=== PATIENT | male | born 1970 | race Caucasian/White ===

== ENCOUNTER 2021-02-27 15:48 | Inpatient (IN) | payer BC ==
[2021-02-27] MEDS ORDERED: NITROGLYCERIN OINT 1 INCH/GM PACKET TOPICAL STA (16:27)
[2021-02-27] MEDS ORDERED: ASPIRIN 81 MG PO STA (16:27)
--- NOTE | 2021-02-27 16:29 | ED ---
General Adult HPI - General Chief complaint: Chest Pain Stated complaint: chest pain-sent by PCP Time Seen by Provider: 02/27/21 16:14 Source: patient, RN notes reviewed Mode of arrival: ambulatory Limitations: no limitations - History of Present Illness Initial comments: Patient is a pleasant 51-year-old male presenting to the emergency department complaints of chest discomfort. Onset of symptoms was several days ago. Symptoms have been intermittent, lasting anywhere from 1-20 minutes. Discomfort feels a pressure with radiation up to the neck. There is occasional mild associated dyspnea. Patient was sweaty with symptoms earlier this morning. No nausea. No history of similar symptoms previously. No leg pain or leg swelling. - Related Data Home Medications Medication Instructions Recorded Confirmed Aspirin EC [Ecotrin Low Dose] 81 mg PO HS 02/27/21 02/27/21 Allergies Allergy/AdvReac Type Severity Reaction Status Date / Time No Known Allergies Allergy Verified 02/27/21 17:09 Review of Systems ROS Statement: Those systems with pertinent positive or pertinent negative responses have been documented in the HPI. ROS Other: All systems not noted in ROS Statement are negative. Constitutional: Denies: fever Eyes: Denies: eye pain ENT: Denies: ear pain Respiratory: Reports: as per HPI Cardiovascular: Reports: as per HPI, chest pain Endocrine: Denies: fatigue Gastrointestinal: Denies: abdominal pain, nausea Genitourinary: Denies: dysuria Musculoskeletal: Denies: back pain Skin: Denies: as per HPI Neurological: Denies: weakness Past Medical History Past Medical History: Hypertension History of Any Multi-Drug Resistant Organisms: None Reported Past Surgical History: Hernia Repair Past Psychological History: No Psychological Hx Reported Smoking Status: Current some day smoker Past Alcohol Use History: None Reported Past Drug Use History: Marijuana General Exam Limitations: no limitations General appearance: alert, in no apparent distress Head exam: Present: atraumatic Eye exam: Present: normal appearance Neck exam: Present: normal inspection Respiratory exam: Present: normal lung sounds bilaterally. Absent: chest wall tenderness Cardiovascular Exam: Present: regular rate, normal rhythm Expanded Peripheral pulses: 2+: Radial (R), Radial (L), Posterior Tibialis (R), Posterior Tibialis (L) GI/Abdominal exam: Present: soft. Absent: tenderness Extremities exam: Present: normal inspection. 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 NE 160. QRS 90. QT 376. QTc 394. Normal axis. Normal QRS. No acute ST change. Medical Decision Making - Medical Decision Making Patient reevaluated and resting comfortably in bed. Patient and family updated on results and plan. Case was discussed in detail with Dr. Guthrie, covering Dr. Peres, who admits covering for Dr. Armijo. - Lab Data Result diagrams: 02/27/21 16:50 02/27/21 16:50 Lab Results 02/27/21 02/27/21 02/27/21 Range/Units 16:50 16:50 16:50 WBC 9.4 (3.8-10.6) k/uL RBC 5.27 (4.30-5.90) m/uL Hgb 15.9 (13.0-17.5) gm/dL Hct 48.0 (39.0-53.0) % MCV 91.1 (80.0-100.0) fL MCH 30.1 (25.0-35.0) pg MCHC 33.1 (31.0-37.0) g/dL RDW 14.3 (11.5-15.5) % Plt Count 272 (150-450) k/uL MPV 7.5 Neutrophils % 56 % Lymphocytes % 32 % Monocytes % 7 % Eosinophils % 2 % Basophils % 1 % Neutrophils # 5.3 (1.3-7.7) k/uL Lymphocytes # 3.0 (1.0-4.8) k/uL Monocytes # 0.7 (0-1.0) k/uL Eosinophils # 0.2 (0-0.7) k/uL Basophils # 0.1 (0-0.2) k/uL PT 10.2 (9.0-12.0) sec INR 0.9 (<1.2) APTT 26.4 (22.0-30.0) sec D-Dimer 0.27 (<0.60) mg/L FEU Sodium 138 (137-145) mmol/L Potassium 4.3 (3.5-5.1) mmol/L Chloride 109 H (98-107) mmol/L Carbon Dioxide 23 (22-30) mmol/L Anion Gap 6 mmol/L BUN 18 (9-20) mg/dL Creatinine 0.94 (0.66-1.25) mg/dL Est GFR (CKD-EPI)AfAm >90 (>60 ml/min/1.73 sqM) Est GFR (CKD-EPI)NonAf >90 (>60 ml/min/1.73 sqM) Glucose 102 H (74-99) mg/dL Calcium 10.0 (8.4-10.2) mg/dL Magnesium 2.0 (1.6-2.3) mg/dL Total Bilirubin 0.4 (0.2-1.3) mg/dL AST 25 (17-59) U/L ALT 13 (4-49) U/L Alkaline Phosphatase 65 (38-126) U/L Troponin I (0.000-0.034) ng/mL Total Protein 7.3 (6.3-8.2) g/dL Albumin 4.1 (3.5-5.0) g/dL 02/27/21 Range/Units 16:50 WBC (3.8-10.6) k/uL RBC (4.30-5.90) m/uL Hgb (13.0-17.5) gm/dL Hct (39.0-53.0) % MCV (80.0-100.0) fL MCH (25.0-35.0) pg MCHC (31.0-37.0) g/dL RDW (11.5-15.5) % Plt Count (150-450) k/uL MPV Neutrophils % % Lymphocytes % % Monocytes % % Eosinophils % % Basophils % % Neutrophils # (1.3-7.7) k/uL Lymphocytes # (1.0-4.8) k/uL Monocytes # (0-1.0) k/uL Eosinophils # (0-0.7) k/uL Basophils # (0-0.2) k/uL PT (9.0-12.0) sec INR (<1.2) APTT (22.0-30.0) sec D-Dimer (<0.60) mg/L FEU Sodium (137-145) mmol/L Potassium (3.5-5.1) mmol/L Chloride (98-107) mmol/L Carbon Dioxide (22-30) mmol/L Anion Gap mmol/L BUN (9-20) mg/dL Creatinine (0.66-1.25) mg/dL Est GFR (CKD-EPI)AfAm (>60 ml/min/1.73 sqM) Est GFR (CKD-EPI)NonAf (>60 ml/min/1.73 sqM) Glucose (74-99) mg/dL Calcium (8.4-10.2) mg/dL Magnesium (1.6-2.3) mg/dL Total Bilirubin (0.2-1.3) mg/dL AST (17-59) U/L ALT (4-49) U/L Alkaline Phosphatase (38-126) U/L Troponin I 0.159 H* (0.000-0.034) ng/mL Total Protein (6.3-8.2) g/dL Albumin (3.5-5.0) g/dL - Radiology Data Radiology results: image reviewed (This x-ray does show some mild increase in interstitial lung markings.) Critical Care Time Critical Care Time: Yes Total Critical Care Time: 32 Disposition Clinical Impression: NSTEMI (non-ST elevated myocardial infarction) Disposition: ADMITTED IP TO THIS [facility] Is patient prescribed a controlled substance at d/c from ED?: No Referrals: Ramakrishna Segundo MD [Primary Care Provider] - 1-2 days Decision Time: 18:02
[2021-02-27 17:03] LABS: Basophils # (A) 0.1 k/uL (0-0.2); Basophils % (A) 1 %; Eosinophils # (A) 0.2 k/uL (0-0.7); Eosinophils % (A) 2 %; HGB 15.9 gm/dL (13.0-17.5); Lymphocytes % (A) 32 %; MCH 30.1 pg (25.0-35.0); MCHC 33.1 g/dL (31.0-37.0); MCV 91.1 fL (80.0-100.0); Mean Platelet Volume 7.5; Monocytes # (A) 0.7 k/uL (0-1.0); Monocytes % (A) 7 %; Neutrophils # (A) 5.3 k/uL (1.3-7.7); Neutrophils % (A) 56 %; Platelet Count 272 k/uL (150-450); RBC 5.27 m/uL (4.30-5.90); RDW 14.3 % (11.5-15.5); WBC 9.4 k/uL (3.8-10.6)
[2021-02-27 17:20] LABS: ALT 13 U/L (4-49); AST 25 U/L (17-59); African American GFR (CKD) >90 (>60 ml/min/1.73 sqM); Albumin 4.1 g/dL (3.5-5.0); Alkaline Phosphatase 65 U/L (38-126); Anion Gap 6 mmol/L; Blood Urea Nitrogen 18 mg/dL (9-20); Carbon Dioxide 23 mmol/L (22-30); Chloride 109 mmol/L (98-107); Glucose 102 mg/dL (74-99); Non-African American GFR(CKD) >90 (>60 ml/min/1.73 sqM); Potassium 4.3 mmol/L (3.5-5.1); Sodium 138 mmol/L (137-145); Total Bilirubin 0.4 mg/dL (0.2-1.3); Total Protein 7.3 g/dL (6.3-8.2)
[2021-02-27 17:22] LABS: D-Dimer 0.27 mg/L FEU (<0.60); INR 0.9 (<1.2); Partial Thromboplastin Time 26.4 sec (22.0-30.0); Prothrombin Time 10.2 sec (9.0-12.0)
--- NOTE | 2021-02-27 17:50 | XR ---
EXAMINATION TYPE: XR chest 2V DATE OF EXAM: 02/27/2021 COMPARISON: 10/20/2016 HISTORY: Shoulder pain. Chest pain TECHNIQUE: FINDINGS: Heart is normal. There is some coarsening of the interstitial pulmonary markings. There are no hilar masses. There are chest leads. Costophrenic angles are clear. IMPRESSION: Mild increased interstitial markings. No pulmonary consolidation or heart failure. Normal heart. No significant change.
[2021-02-27] MEDS ORDERED: NITROGLYCERIN SL TABS 0.4 MG TAB SUBLINGUAL PRN (18:02)
[2021-02-27] MEDS ORDERED: HEPARIN SODIUM 1,000 UN/ML (10ML VL) IV ONE (18:02)
[2021-02-27] MEDS ORDERED: HEPARIN SOD,PORK IN 0.45% NACL 25,000 UNIT in 0.45% NACL 1 250ML.BAG IV SCH (18:15)
[2021-02-27] MEDS ORDERED: NICOTINE 21MG/24HR PATCH TRANSDERM STA (19:58)
--- NOTE | 2021-02-27 23:39 | P.HPIM ---
History of Present Illness H&P Date: 02/27/21 The patient is a 50-year-old male with a PMH of EtOH abuse, tobacco abuse (currently smoking 1 pack per day) who presented to the emergency room with complaints of chest discomfort. The patient notes that his pain initially started 2 days ago when he noticed an occasional substernal and epigastric pressure-like discomfort, lasting only for a few minutes. The pain gradually became more frequent, rated at 7 out of 10 at its maximal intensity, lasting a varying amount of time, occurring every half hour or so, radiating up to the neck, nonpleuritic, with no alleviating or exacerbating features. He reported associated dyspnea along with diaphoresis and occasional nausea. The patient denied prior history of RI or having undergone any cardiac testing. Patient subsequently went to see his primary care doctor today who advised him to go to the emergency room. At time of interview, the patient reports that his pain resolved after being started on the heparin drip. He denied additional com plaints. Denied fever, chills, cough, abdominal pain, diarrhea, headaches, dizziness, visual disturbances. Laboratory evaluation in the emergency room was remarkable for troponin 0.159. EKG reveals sinus rhythm with sinus arrhythmia at [address]/T-wave changes noted as reviewed by me. Chest x-ray revealed mildly increased interstitial markings with no acute intrathoracic abnormalities noted. Review of Systems Pertinent positives and negatives as discussed in HPI, a complete review of systems was performed and all other systems are negative. Past Medical History Past Medical History: Hypertension History of Any Multi-Drug Resistant Organisms: None Reported Past Surgical History: Hernia Repair Past Psychological History: No Psychological Hx Reported Smoking Status: Current some day smoker Past Alcohol Use History: None Reported Past Drug Use History: Marijuana Medications and Allergies Home Medications Medication Instructions Recorded Confirmed Type Aspirin EC [Ecotrin Low Dose] 81 mg PO HS 02/27/21 02/27/21 History Allergies Allergy/AdvReac Type Severity Reaction Status Date / Time No Known Allergies Allergy Verified 02/27/21 17:09 Physical Exam Vitals: Vital Signs Temp Pulse Pulse Resp BP Pulse Ox 02/27/21 18:22 63 20 140/88 96 02/27/21 18:18 70 20 161/108 96 02/27/21 17:11 57 L 20 152/86 97 02/27/21 16:45 52 L 02/27/21 15:58 98.1 F 67 18 147/84 98 Intake and Output 02/27/21 02/27/21 02/27/21 06:59 14:59 22:59 Other: Weight 100.698 kg General: non toxic, no distress, appears at stated age, obese Derm: no unusual rashes/lesions no unusual ecchymoses, warm, dry Head: atraumatic, normocephalic, symmetric Eyes: EOMI, no lid lag, anicteric sclera, pupils equal round reactive to light ENT: Nose and ears atraumatic, no thrush, no pharyngeal erythema Neck: No thyromegaly, no cervical lymphadenopathy, trachea midline, supple Mouth: no lip lesion, mucus membranes moist Cardiovascular: S1S2 reg, no murmur, positive posterior tibial pulse bilateral, no edema, capillary refill less than 2 seconds, no chest wall tenderness on palpation Lungs: CTA bilateral, no rhonchi, no rales , no accessory muscle use Abdominal: soft, nontender to palpation, no guarding, no appreciable organomegaly, normal bowel sounds Ext: no gross muscle atrophy, muscle strength 5 out of 5 in all 4 extremities grossly, no contractures, Neuro: CN II-XI grossly intact, light touch intact all 4 extremities, finger to nose within normal limits, Psych: Alert, oriented, appropriate affect Results CBC & Chem 7: 02/27/21 16:50 02/27/21 16:50 Labs: Abnormal Lab Results - Last 24 Hours (Table) 02/27/21 02/27/21 02/27/21 Range/Units 16:50 16:50 19:55 APTT 56.0 H (22.0-30.0) sec Chloride 109 H (98-107) mmol/L Glucose 102 H (74-99) mg/dL Troponin I 0.159 H* (0.000-0.034) ng/mL 02/27/21 Range/Units 19:55 APTT (22.0-30.0) sec Chloride (98-107) mmol/L Glucose (74-99) mg/dL Troponin I 0.166 H* (0.000-0.034) ng/mL Assessment and Plan Plan: Non-ST elevation RI -Continue with heparin infusion -Continue with aspirin -Initiate Lopressor and statin -Cardiac monitoring -Trend troponin -Cardiology consult -Nitro patch History of tobacco abuse -Patient strongly advised on importance of cessation DVT prophylaxis -Heparin infusion The patient is admitted with an anticipated greater than 2 midnight stay for evaluation of NSTEMI CODE STATUS: Full Code Discussed with: Patient Anticipated discharge date: in am Anticipated discharge place: Home A total of 35 minutes was spent on the care of this complex patient more than 50% of the time was spent in counseling and care coordination.
[2021-02-27] MEDS: ATORVASTATIN 80 MG TAB PO SCH (23:57)
[2021-02-27] MEDS: METOPROLOL TARTRATE 25 MG TAB PO SCH (23:57)
[2021-02-27] MEDS: NITROGLYCERIN OINT 1 INCH/GM PACKET TOPICAL SCH (23:57)
[2021-02-28] MEDS: NITROGLYCERIN OINT 1 INCH/GM PACKET TOPICAL SCH (05:49)
[2021-02-28 07:30] LABS: Mean Platelet Volume 7.2; Platelet Count 261 k/uL (150-450)
[2021-02-28 07:37] LABS: Cholesterol 204 mg/dL (<200); HDL Cholesterol 39 mg/dL (40-60); LDL Cholesterol,Calculated 138 mg/dL (0-99); Triglycerides 136 mg/dL (<150)
[2021-02-28] MEDS ORDERED: ALPRAZolam 0.25 MG TAB PO PRN (08:27)
[2021-02-28] MEDS ORDERED: ALPRAZolam 0.5 MG TAB PO PRN (08:27)
[2021-02-28] MEDS ORDERED: SODIUM CHLORIDE 0.9% 1,000 ML in EMPTY BAG 1 BAG IV ONE (08:27)
[2021-02-28] MEDS ORDERED: ASPIRIN 325 MG TAB PO SCH (09:00)
[2021-02-28] MEDS ORDERED: IV FLUID CONTINUATION 1,000 ML IV ONE (09:13)
--- NOTE | 2021-02-28 09:17 | P.CRDCN ---
History of Present Illness History of present illness: HISTORY OF PRESENTING ILLNESS This is a pleasant 51-year-old male past medical history significant for Hypertension, ETOH abuse, nicotine dependence (smokes 1 pack per day). He does not follow with a cardiolgoist. We have been asked to see in consultation for chest pain. Patient is seen and examined in the emergency department. States he started having chest pain 4-5 days ago, had chest pain for about 2-3 times per day. Yesterday progressively got worse. Increased to every 30 minutes yesterday. Lasting about -15minutes. Chest pain is intermittent, describes it as a dull pressure. Pain is exertional. Started in the right side of his chest, radiating across his anterior chest to jaw. Pain is 7/10. After presenting to hospital and receiving nitro, aspirin, and heparin drip his chest pain resolved. Leaning forward helped relieve his pain at home. No alleviating factors or aggravating factors. Associated symptoms include dyspnea and diaphoresis, occasional nausea. Denies history of diabetes, NM, stroke, hypertension. Strong family history of CAD. Both grandfathers with MIs, grandmother with an NM, Father had an NM in his 40s. Denies palpitations, lower extremity edema, fa tigue, weakness, lightheadedness, syncope. Denies symptoms of orthopnea or PND. Current home cardiac medications include aspirin 81mg daily. Used to take medications for his BP but stopped those medications due to side effects. He was at his PCP yesterday who told him to present to the ER. DIAGNOSTICS EKG reveals sinus rhythm, heart rate 66, no significant STT wave abnormalities. Prior EKG in 2016 sinus bradycardia, HR 59, no significant ST-T Wave abnormalities Chest xray mild increased interstitial markings. No pulmonary consolidation or heart failure Laboratory reviewed, CBC unremarkable, troponin 0.15, 0.16, 0.23, sodium 138, potassium 4.3, serum creatinine 0.94, viral PCR negative, d-dimer 0.27 REVIEW OF SYSTEMS At the time of my exam: CONSTITUTIONAL: Denies fever or chills. CARDIOVASCULAR: + chest pain, +shortness of breath,+ diaphoresis Denies orthopnea, PND or palpitations. RESPIRATORY: Denies cough. GASTROINTESTINAL: Denies abdominal pain, diarrhea, constipation, nausea or vomiting. MUSCULOSKELETAL: Denies myalgias. NEUROLOGIC: Denies numbness, tingling, headacbe or weakness. ENDOCRINE: Denies fatigue, weight change, polydipsia or polyurina. GENITOURINARY: Denies burning, hematuria or urgency with micturation. HEMATOLOGIC: Denies history of anemia or bleeding. PHYSICAL EXAMINATION Blood pressure 135/80 heart rate 60s afebrile and maintaining oxygen saturation 96% on room air CONSTITUTIONAL: No apparent distress. HEENT: Head is normocephalic. Pupils are equal, round. Sclerae anicteric. Mucous membranes of the mouth are moist. No JVD. No carotid bruit. CHEST EXAMINATION: Lungs are clear to auscultation. No chest wall tenderness is noted on palpation or with deep breathing. HEART EXAMINATION: Regular rate and rhythm. S1, S2 heard. No murmurs, gallops or rub. ABDOMEN: Soft, nontender. Positive bowel sounds. EXTREMITIES: 2+ peripheral pulses, no lower extremity edema and no calf tenderness. SKIN: intact NEUROLOGIC EXAMINATION: Patient is awake, alert and oriented x3. ASSESSMENT NSTEMI Hypertension history of etoh abuse chronic nicotine dependence PLAN Obtain 2D echocardiogram and doppler study to assess cardiac structure and function. Plan for cardiac catheterization and possible PCI with Dr Olmedo. I have discussed the risks, benefits and alternative therapies for the above- mentioned procedure and for both sedation/analgesia as well as necessary blood product administration, if indicated, as they pertain to this patient. The p atient has indicated understanding and acceptance of the risks and procedures discussed. Questions have been answered appropriately and he is agreeable to move forward with the above-stated procedure. Smoking cessation discussed and highly recommended. Further recommendations based on clinical course Nurse Practitioner note has been reviewed, I agree with a documented findings and plan of care. Patient was seen and examined. Past Medical History Past Medical History: Hypertension History of Any Multi-Drug Resistant Organisms: None Reported Past Surgical History: Hernia Repair Past Anesthesia/Blood Transfusion Reactions: No Reported Reaction Past Psychological History: No Psychological Hx Reported Smoking Status: Current some day smoker Past Alcohol Use History: None Reported Past Drug Use History: Marijuana Medications and Allergies Home Medications Medication Instructions Recorded Confirmed Type Aspirin EC [Ecotrin Low Dose] 81 mg PO HS 02/27/21 02/27/21 History Allergies Allergy/AdvReac Type Severity Reaction Status Date / Time No Known Allergies Allergy Verified 02/27/21 17:09 Physical Exam Vitals: Vital Signs Temp Pulse Pulse Resp BP BP Pulse Ox 02/28/21 04:00 97.6 F 58 L 17 135/80 96 02/28/21 00:00 97.9 F 60 18 129/89 95 02/27/21 18:22 63 20 140/88 96 02/27/21 18:18 70 20 161/108 96 02/27/21 17:11 57 L 20 152/86 97 02/27/21 16:45 52 L 02/27/21 15:58 98.1 F 67 18 147/84 98 Intake and Output 02/27/21 02/27/21 02/28/21 14:59 22:59 06:59 Intake Total 68.333 Balance 68.333 Intake: Intake, IV Titration 68.333 Amount Heparin Sod,Pork in 0.45% 68.333 NaCl 25,000 unit In 0.45 % NaCl 1 250ml.bag @ 9. 931 UNITS/KG/HR 10 mls/hr IV .Q24H [facility] Rx#: [id number] Other: Weight 100.698 kg Results 02/28/21 07:07 02/27/21 16:50 Cardiac Enzymes 02/27/21 02/27/21 02/27/21 Range/Units 16:50 16:50 19:55 AST 25 (17-59) U/L Troponin I 0.159 H* 0.166 H* (0.000-0.034) ng/mL 02/28/21 Range/Units 00:08 AST (17-59) U/L Troponin I 0.238 H* (0.000-0.034) ng/mL Coagulation 02/27/21 02/27/21 02/28/21 Range/Units 16:50 19:55 00:08 PT 10.2 (9.0-12.0) sec APTT 26.4 56.0 H 33.5 H (22.0-30.0) sec CBC 02/27/21 Range/Units 16:50 WBC 9.4 (3.8-10.6) k/uL RBC 5.27 (4.30-5.90) m/uL Hgb 15.9 (13.0-17.5) gm/dL Hct 48.0 (39.0-53.0) % Plt Count 272 (150-450) k/uL Comprehensive Metabolic Panel 02/27/21 Range/Units 16:50 Sodium 138 (137-145) mmol/L Potassium 4.3 (3.5-5.1) mmol/L Chloride 109 H (98-107) mmol/L Carbon Dioxide 23 (22-30) mmol/L BUN 18 (9-20) mg/dL Creatinine 0.94 (0.66-1.25) mg/dL Glucose 102 H (74-99) mg/dL Calcium 10.0 (8.4-10.2) mg/dL AST 25 (17-59) U/L ALT 13 (4-49) U/L Alkaline Phosphatase 65 (38-126) U/L Total Protein 7.3 (6.3-8.2) g/dL Albumin 4.1 (3.5-5.0) g/dL Current Medications Generic Name Dose Route Start Last Admin Trade Name Freq PRN Reason Stop Dose Admin Aspirin 325 mg 02/28/21 09:00 Aspirin 325 Mg Tab PO DAILY KATT Atorvastatin Calcium 80 mg 02/27/21 23:45 02/27/21 23:57 Atorvastatin 80 Mg Tab PO 80 mg HS KATT Administration Heparin Sodium/Sodium Chloride 250 mls @ 10 mls/hr 02/27/21 18:15 02/28/21 01:26 25,000 unit/ Sodium Chloride IV 12.91 units/kg/hr .Q24H KATT 13 mls/hr Titration Protocol 9.931 UNITS/KG/HR Metoprolol Tartrate 25 mg 02/27/21 23:45 02/27/21 23:57 Metoprolol Tartrate 25 Mg Tab PO 25 mg BID KATT Administration Nitroglycerin 0.4 mg 02/27/21 18:02 Nitroglycerin Sl Tabs 0.4 Mg Tab SUBLINGUAL Q5M PRN Chest Pain Nitroglycerin 1 inch 02/28/21 00:00 02/28/21 05:49 Nitroglycerin Oint 1 Inch/Gm Packet TOPICAL Not Given Q6HR KATT Sodium Chloride 10 ml 02/27/21 21:00 02/27/21 23:45 Sodium Chloride 0.9% Flush 10 Ml Syringe IV Not Given BID KATT Intake and Output 02/27/21 02/27/21 02/28/21 14:59 22:59 06:59 Intake Total 68.333 Balance 68.333 Intake: Intake, IV Titration 68.333 Amount Heparin Sod,Pork in 0.45% 68.333 NaCl 25,000 unit In 0.45 % NaCl 1 250ml.bag @ 9. 931 UNITS/KG/HR 10 mls/hr IV .Q24H [facility] Rx#: [id number] Other: Weight 100.698 kg Patient Weight 02/28/21 06:59 Weight 100.698 kg 02/27/21 16:50 02/27/21 16:50
[2021-02-28] MEDS: MIDAZOLAM 2 MG/2 ML VIAL IVP ONE ×2 (09:22→09:55)
[2021-02-28] MEDS ORDERED: LIDOCAINE 1% INJ 10MG/ML (20 ML MDV) SQ ONE (09:22)
[2021-02-28] MEDS: fentaNYL (PF) 50 MCG/ML 2 ML AMP IVP ONE ×2 (09:22→09:55)
[2021-02-28] MEDS ORDERED: VERAPAMIL SYRINGE (5 MG/10 ML) INTRAARTER ONE (09:24)
[2021-02-28] MEDS: HEPARIN SODIUM 1,000 UN/ML (10ML VL) IV ONE ×2 (09:34→10:15)
[2021-02-28] MEDS ORDERED: PRASUGREL 10 MG TAB PO ONE (09:47)
--- NOTE | 2021-02-28 10:05 | P.CARDCATH ---
Date of Procedure: 02/28/21 Preoperative Diagnosis: Non-STEMI Postoperative Diagnosis: Critical lesion involving the circumflex Procedure(s) Performed: Left heart catheterization without left ventriculography Description of Procedure: HISTORY: This is a 50-year-old gentleman who was admitted to the hospital with chest pain and positive troponins. His EKG and echocardiogram from normal. Because of typical symptoms, patient is advised to have a cardiac c atheterization. CONSENT:I have discussed the risks, benefits and alternative therapies for the above-mentioned procedure and for both sedation/analgesia as well as necessary blood product administration, if indicated, as they pertain to this patient. The patient has indicated understanding and acceptance of the risks and procedures discussed. PROCEDURE: Patient was brought to the lab in a fasting state. Patient was given some IV sedation. The right wrist is infiltrated with lidocaine and right radial artery was entered using Seldinger technique. A 6-[place] catheter was left in place and selective coronary arteriography was performed. Patient tolerated the procedure well. Patient is found to have critical lesion in the circumflex and went on to have stent placement by Dr. Young.. No immediate complications were noted . Conscious Sedation: Versed 1mg Fentanyl 50 g Duration 21minutes HEMODYNAMICS: Aortic pressure is about 130/70. Left ventricular end-diastolic pressure is 15. No gradient across the aortic valve SELECTIVE CORONARY ARTERIOGRAPHY: LEFT MAIN: Normal length and free of occlusive disease THE LEFT ANTERIOR DESCENDING CORONARY ARTERY: . Moderate caliber vessel giving rise to good-sized diagonal. The LAD and branches are free of occlusive disease THE LEFT CIRCUMFLEX AND IS CORONARY ARTERY: . Moderate caliber vessel with 95% stenosis in the proximal portion THE RIGHT CORONARY ARTERY: Dominant vessel with mild diffuse plaque in the case area without any critical lesions LEFT VENTRICULOGRAPHY: Not performed FINAL IMPRESSION: . Critical lesion involving the circumflex PLAN: And placement of the circumflex PROGNOSIS: Fair
[2021-02-28] MEDS ORDERED: IOPAMIDOL-370 125ML BTL INJ ONE ×2 (10:11→10:36)
[2021-02-28] MEDS: NITROGLYCERIN 1000MCG/10ML SYRINGE INTRACORON ONE ×2 (10:28→10:31)
[2021-02-28] MEDS ORDERED: NICOTINE 21MG/24HR PATCH TRANSDERM STA (10:59)
[2021-02-28] MEDS ORDERED: ATROPINE SULFATE 0.1 MG/ML 10ML SYRINGE IV PRN (11:01)
[2021-02-28] MEDS ORDERED: RX INFO: IV CONTRAST WAS GIVEN 1 EACH MISC MISCELLANE PRN (11:01)
[2021-02-28] MEDS ORDERED: ZOLPIDEM 5 MG TAB PO PRN (11:01)
[2021-02-28] MEDS ORDERED: MAG HYDROX/AL HYDROX/SIMETH 30 ML CUP PO PRN (11:01)
--- NOTE | 2021-02-28 12:19 | ECHOF ---
Referral Reason:chest pain, elevated troponin MEASUREMENTS -------- HEIGHT: 182.9 cm WEIGHT: 100.7 kg BP: RVIDd: 3.0 cm (< 3.3) IVSd: 1.1 cm (0.6 - 1.1) LVIDd: 5.2 cm (3.9 - 5.3) LVPWd: 1.3 cm (0.6 - 1.1) IVSs: 1.5 cm LVIDs: 4.1 cm LVPWs: 1.2 cm LA Diam: 4.9 cm (2.7 - 3.8) LAESV Index (A-L): 27.02 ml/m Ao Diam: 3.7 cm (2.0 - 3.7) AV Cusp: 2.2 cm (1.5 - 2.6) MV EXCURSION: 21.518 mm (> 18.000) MV EF SLOPE: 109 mm/s (70 - 150) EPSS: 0.5 cm MV E Jhony: 0.67 m/s MV DecT: 183 ms MV A Jhony: 0.75 m/s MV E/A Ratio: 0.89 RAP: 5.00 mmHg RVSP: 19.39 mmHg FINDINGS -------- Sinus rhythm. This was a technically adequate study. The left ventricular size is normal. There is mild concentric left ventricular hypertrophy. Overa ll left ventricular systolic function is normal with, an EF between 55 - 60 %. The right ventricle is normal in size. Normal LA size by volume 22+/-6 ml/m2. The right atrial size is normal. There is mild aortic valve sclerosis. The mitral valve is normal. Mild mitral regurgitation is present. The tricuspid valve appears structurally normal. Trace tricuspid regurgitation present. Right ed tricular systolic pressure is normal at < 35 mmHg. Trace/mild (physiologic) pulmonic regurgitation. The aortic root size is normal. There is no pericardial effusion. CONCLUSIONS -------- 1. Overall left ventricular systolic function is normal with, an EF between 55 - 60 %. 2. Normal LA size by volume 22+/-6 ml/m2. 3. There is mild aortic valve sclerosis. 4. Mild mitral regurgitation is present. 5. Trace tricuspid regurgitation present. 6. Trace/mild (physiologic) pulmonic regurgitation. 7. There is no pericardial effusion. [employer] ASSEMBLER: Maggie Cohen RDCS
[2021-02-28] MEDS: METOPROLOL TARTRATE 25 MG TAB PO SCH ×2 (16:53→21:53)
[2021-02-28] MEDS: SODIUM CHLORIDE 0.9% 1,000 ML IV SCH (16:54)
[2021-02-28] MEDS: NICOTINE 21MG/24HR PATCH TRANSDERM SCH (17:24)
[2021-02-28] MEDS ORDERED: ASPIRIN 81 MG PO SCH (21:00)
--- NOTE | 2021-02-28 21:47 | P.PN ---
Progress Note - Text Progress Note Date: 02/28/21 Presenting complaint: Chest pain History of presenting complaint: The patient is a 50-year-old male with a PMH of EtOH abuse, tobacco abuse (currently smoking 1 pack per day) who presented to the emergency room with complaints of chest discomfort. The patient notes that his pain initially star moo 2 days ago when he noticed an occasional substernal and epigastric pressure- like discomfort, lasting only for a few minutes. The pain gradually became more frequent, rated at 7 out of 10 at its maximal intensity, lasting a varying amount of time, occurring every half hour or so, radiating up to the neck, nonpleuritic, with no alleviating or exacerbating features. He reported associated dyspnea along with diaphoresis and occasional nausea. The patient denied prior history of [place] or having undergone any cardiac testing. Patient subsequently went to see his primary care doctor today who advised him to go to the emergency room. At time of interview, the patient reports that his pain resolved after being started on the heparin drip. He denied additional complaints. Denied fever, chills, cough, abdominal pain, diarrhea, headaches, dizziness, visual disturbances. Laboratory evaluation in the emergency room was remarkable for troponin 0.159. EKG reveals sinus rhythm with sinus arrhythmia at [address]/T-wave changes noted as reviewed by me. Chest x-ray revealed mildly increased interstitial markings with no acute intrathoracic abnormalities noted. Today: Patient was taken down for a cardiac catheterization. Lesion in the circumflex was stented. Postprocedure no chest pain or shortness of breath. Review of systems: Was done for constitutional, cardiovascular, GI, pulmonary. relevant finding as above Active Medications Al Hydroxide/Mg Hydroxide (Mag Hydrox/Al Hydrox/Simeth 30 Ml Cup) 30 ml PO Q4HR PRN PRN Reason: Heartburn Alprazolam (Alprazolam 0.25 Mg Tab) 0.25 mg PO Q6HR PRN PRN Reason: Mild Anxiety Alprazolam (Alprazolam 0.5 Mg Tab) 0.5 mg PO Q6HR PRN PRN Reason: Moderate Anxiety Aspirin (Aspirin 81 Mg) 81 mg PO HS KATT Atorvastatin Calcium (Atorvastatin 80 Mg Tab) 80 mg PO HS KATT Last Admin: 02/27/21 23:57 Dose: 80 mg Documented by: Atropine Sulfate (Atropine Sulfate 0.1 Mg/Ml 10ml Syringe) 0.5 mg IV ONCE PRN PRN Reason: Symptomatic Bradycardia Heparin Sodium (Porcine) 10, (000 unit/ Sodium Chloride) 1,001 mls @ 999 mls/hr IRRIGATION ONCE PRN PRN Reason: INTRA-OP Stop: 03/01/21 23:00 Heparin Sodium (Porcine) 2,500 (unit/ Sodium Chloride) 250.5 mls @ 250 mls/hr IRRIGATION ONCE PRN PRN Reason: INTRA-OP Stop: 03/01/21 23:00 Sodium Chloride (Saline 0.9%) 1,000 mls @ 80 mls/hr IV .[id number] [facility] Last Admin: 02/28/21 16:54 Dose: Not Given Documented by: Metoprolol Tartrate (Metoprolol Tartrate 25 Mg Tab) [address] [facility] Last Admin: 02/28/21 16:53 Dose: Not Given Documented by: Miscellaneous Information (Rx Info: Iv Contrast Was Given 1 Each Misc) 1 each MISCELLANE DAILY PRN PRN Reason: Per Protocol Stop: 03/02/21 11:01 Nicotine (Nicotine 21mg/24hr Patch) [address] [facility] Last Admin: 02/28/21 17:24 Dose: 1 patch Documented by: Nitroglycerin (Nitroglycerin Sl Tabs 0.4 Mg Tab) 0.4 mg SUBLINGUAL Q5M PRN PRN Reason: Chest Pain Prasugrel (Prasugrel 10 Mg Tab) [address] [facility] Sodium Chloride (Sodium Chloride 0.9% Flush 10 Ml Syringe) [address] [facility] Last Admin: 02/28/21 16:53 Dose: Not Given Documented by: Zolpidem Tartrate (Zolpidem 5 Mg Tab) 5 mg PO HS PRN PRN Reason: Insomnia On examination: VITAL SIGNS: Afebrile, 58, 16, 150/94, 95% on room air GENERAL APPEARANCE: BMI 31.9, sitting up in bed, comfortable HEENT: Normal external appearance of nose and ear. Oral cavity normal EYES: Pupils equal. Conjunctiva normal. NECK: JVD not raised. Mass not palpable. RESPIRATORY: Respiratory effort normal. Lungs decreased breath sounds CARDIOVASCULAR: First and second sounds normal. No edema. ABDOMEN: Soft. Liver and spleen not palpable. No tenderness. No mass palpable. PSYCHIATRY: Alert and oriented x3. Mood and affect normal. INVESTIGATIONS, reviewed in the clinical context: WBC 9.4 hemoglobin 15.9 platelets 232 potassium 4.3 creatinine 0.94 Troponin I 0.159, 0.166, 0.238 LDL 138 Influenza type A, diabetes, RSV, COVID 19: Not detected EKG tracing personally reviewed by me-normal sinus rhythm Chest x-ray film: Nothing acute Assessment and plan: -Acute non-Q-wave [place] Initially placed on IV heparin. Aspirin. -Coronary artery disease Cardiac catheterization with stent to circumflex. Patient in aspirin, Lipitor, beta ibrahima -Essential hypertension On beta ibrahima. Add lisinopril hydrochlorothiazide 08/14.5 -Hyperlipidemia On Lipitor -Chronic nicotine dependence cigarette smoker Nicotine patch -Obesity BMI 31.9 Care was discussed with the patient and at the bedside. Questions answered.
[2021-02-28] MEDS: ATORVASTATIN 80 MG TAB PO SCH (21:53)
[2021-02-28] MEDS ORDERED: LISINOPRIL-HCTZ 10-12.5 MG 1 EACH TAB PO SCH (22:00)
--- NOTE | 2021-02-28 23:07 | P.PRCINT ---
Percutaneous Coronary Int. - Percutaneous Coronary Intervention Percutaneous Coronary Intervention: PROCEDURES PERFORMED: Left coronary angiography, PCI of proximal circumflex with a 3.0 x 33mm Xience RADHA and post dilated with a 3.5 NC balloon INDICATION: Non-STEMI HISTORY: Patient is a pleasant 51 year old male with history of hypertension, tobacco abuse who presented with chest pain and was found to have NSTEMI. Patient had a diagnostic heart cath which showed obstructive CAD of the circumflex with a 95% stenosis. PROCEDURE: After the risks, benefits and alternatives of the above mentioned procedure explained in detail with the patient, informed consent was obtained. Patient had already been prepped and draped in the usual fashion with a right radial sheath in place from diagnostic procedure. The left main was engaged with a CLS 3.5 catheter. A 0.014 BMW wire was advanced into the distal circumf delvin with the help of a 6Fr guideliner, and a microcatheter. Balloon angiography was performed with a 2.5 x 8mm balloon. Next a 3.0 x 33mm Xience RADHA was placed. The proximal portion of the stent was post dilated with a 3.5 NC balloon. Patient had distal embolization and spasm which improved with intracoronary nitroglycerin. The wire was removed and final angiograms were performed. Preintervention there was a 95% circumflex stenosis with HETAL 3 flow and post interventio there was 0% stenosis with HETAL 3 flow and no dissection. The right radial sheath was removed and a TR band was placed with hemostasis achieved. The patient tolerated the procedure well. Patient was transported back to the post catheterization holding area in stable condition. Conscious Sedation: Patient was monitored under the direct supervision of vision of myself for conscious sedation using Versed and fentanyl for a total duration of 57 minutes HEMODYNAMICS: Ao: 134/78 SELECTIVE CORONARY ARTERIOGRAPHY: LEFT MAIN: The left main is a large caliber vessel which trifurcates into the LAD, ramus and circumflex. There is no significant stenosis. LEFT ANTERIOR DESCENDING CORONARY ARTERY: LAD is a large caliber vessel which wraps around to the apex. There are mild luminal irregularities. RAMUS INTERMEDIUS: The ramus is a moderate caliber vessel and has mild luminal irregularities. LEFT CIRCUMFLEX CORONARY ARTERY: Left circumflex is a large caliber vessel with a 95% proximal stenosis. RIGHT CORONARY ARTERY: The right coronary artery was not imaged, see diagnostic report. FINAL IMPRESSION: 1. CAD s/p successful PCI of proximal to mid circumflex with 3.0 x 33mm Xience RADHA, and post dilated with a 3.5 NC balloon. 2. NSTEMI PLAN: 1. Aggressive risk factor modification per most recent ACC/AHA guidelines. 2. Dual antiplatelets for 12 months.
[2021-03-01] MEDS: SODIUM CHLORIDE 0.9% 1,000 ML IV SCH (06:55)
[2021-03-01] MEDS ORDERED: HEPARIN SODIUM,PORCINE 10,000 UNIT in SODIUM CHLORIDE 0.9% 1,000 ML IRRIGATION PRN (07:00)
[2021-03-01] MEDS ORDERED: HEPARIN SODIUM,PORCINE 2,500 UNIT in SODIUM CHLORIDE 0.9% 250 ML IRRIGATION PRN (07:00)
[2021-03-01 08:15] VITALS: RESP 16
[2021-03-01] MEDS: METOPROLOL TARTRATE 25 MG TAB PO SCH (09:05)
[2021-03-01] MEDS: NICOTINE 21MG/24HR PATCH TRANSDERM SCH (09:05)
[2021-03-01 10:00] LABS: Basophils # (A) 0.1 k/uL (0-0.2); Basophils % (A) 1 %; Eosinophils # (A) 0.2 k/uL (0-0.7); Eosinophils % (A) 2 %; HCT 49.1 % (39.0-53.0); HGB 16.6 gm/dL (13.0-17.5); Lymphocytes # (A) 2.1 k/uL (1.0-4.8); Lymphocytes % (A) 21 %; MCH 30.2 pg (25.0-35.0); MCHC 33.8 g/dL (31.0-37.0); MCV 89.3 fL (80.0-100.0); Mean Platelet Volume 7.4; Monocytes # (A) 0.7 k/uL (0-1.0); Monocytes % (A) 7 %; Neutrophils # (A) 6.8 k/uL (1.3-7.7); Neutrophils % (A) 68 %; Platelet Count 283 k/uL (150-450); RDW 13.5 % (11.5-15.5)
[2021-03-01 10:32] LABS: African American GFR (CKD) >90 (>60 ml/min/1.73 sqM); Anion Gap 6 mmol/L; Blood Urea Nitrogen 14 mg/dL (9-20); Calcium 9.8 mg/dL (8.4-10.2); Carbon Dioxide 22 mmol/L (22-30); Chloride 110 mmol/L (98-107); Glucose 98 mg/dL (74-99); Non-African American GFR(CKD) >90 (>60 ml/min/1.73 sqM); Potassium 4.7 mmol/L (3.5-5.1); Sodium 138 mmol/L (137-145)
[2021-03-01 11:23] VITALS: BMI 31.8
--- NOTE | 2021-03-01 12:14 | P.PN ---
Subjective HISTORY OF PRESENTING ILLNESS This is a pleasant 51-year-old male past medical history significant for Hypertension, ETOH abuse, nicotine dependence (smokes 1 pack per day). He does not follow with a cardiolgoist. We have been asked to see in consultation for chest pain/NSTEMI. EKG reveals sinus rhythm, heart rate 66, no significant STT wave abnormalities. Prior EKG in 2016 sinus bradycardia, HR 59, no significant ST-T Wave abnormalities Chest xray mild increased interstitial markings. No pulmonary consolidation or heart failure Laboratory reviewed, CBC unremarkable, troponin 0.15, 0.16, 0.23, sodium 138, potassium 4.3, serum creatinine 0.94, viral PCR negative, d-dimer 0.27. 2D echocardiogram revealed- EF 55-60%, mild MR, trace TR. Patient underwent cardiac catheterization with PCI of proximal to mid circumflex 02/28/21 03/01/21: Patient seen and examined at bedside, no acute distress. Blood pressure 150/80, heart rate 60s , maintaining oxygen saturations 90% room air, afebrile A reviewed, CBC unremarkable, as renal function stable, within normal limits. Patient's triglycerides 136, cholesterol 204, LDL 138, HDL 39. PHYSICAL EXAMINATION Blood pressure heart rate afebrile and maintaining oxygen saturation 96% on room air CONSTITUTIONAL: No apparent distress. HEENT: Head is normocephalic. No JVD. No carotid bruit. CHEST EXAMINATION: Lungs are clear to auscultation. HEART EXAMINATION: Regular rate and rhythm. S1, S2 heard. No murmurs, gallops or rub. ABDOMEN: Soft, nontender. Positive bowel sounds. EXTREMITIES: 2+ peripheral pulses, no lower extremity edema and no calf tenderness. SKIN: R radial artery cath site, clean dry no hematoma 2+ pulses NEUROLOGIC EXAMINATION: Patient is awake, alert and oriented x3. ASSESSMENT NSTEMI status post PCI of proximal to mid circumflex 02/28/21 Hypertension history of etoh abuse chronic nicotine dependence dyslipidemia PLAN Will increase linsiopril-hctz 20-12.5mg Continue dual antiplatelet therapy - aspirin 81mg daily, Prasugrel 10mg daily Continue metoprolol 25mg BID and statin From cardiology perspective, patient is stable for discharge home. Patient to follow-up in the office Dr. Olmedo one week New medication discussed with the patient and sent to pharmacy Smoking cessation discussed and highly recommended. Nurse Practitioner note has been reviewed, I agree with a documented findings and plan of care. Patient was seen and examined. Objective - Vital Signs Vital signs: Vital Signs Temp 98.1 F 02/28/21 08:00 Pulse 58 L 02/28/21 15:55 Resp 16 02/28/21 15:55 BP 178/90 02/28/21 15:55 Pulse Ox 95 02/28/21 11:20 Intake & Output 02/28/21 02/28/21 03/01/21 06:59 18:59 06:59 Intake Total 68.333 570.367 0 Balance 68.333 570.367 0 Intake: IV 100 Intake, IV Titration 68.333 470.367 Amount Heparin Sod,Pork in 0.45% 68.333 85.367 NaCl 25,000 unit In 0.45 % NaCl 1 250ml.bag @ 9. 931 UNITS/KG/HR 10 mls/hr IV .Q24H KATT Rx#: [id number] Sodium Chloride 0.9% 1, 385 000 ml @ 80 mls/hr IV . [id number] KATT Rx#:[id number] Oral 0 Other: # Voids 1 - Labs CBC & Chem 7: 03/01/21 09:05 03/01/21 09:05 Labs: Abnormal Lab Results - Last 24 Hours (Table) 02/27/21 02/27/21 02/28/21 Range/Units 19:55 19:55 00:08 APTT 56.0 H (22.0-30.0) sec Troponin I 0.166 H* 0.238 H* (0.000-0.034) ng/mL Cholesterol (<200) mg/dL LDL Cholesterol, Calc (0-99) mg/dL HDL Cholesterol (40-60) mg/dL 02/28/21 02/28/21 Range/Units 00:08 07:07 APTT 33.5 H (22.0-30.0) sec Troponin I (0.000-0.034) ng/mL Cholesterol 204 H (<200) mg/dL LDL Cholesterol, Calc 138 H (0-99) mg/dL HDL Cholesterol 39 L (40-60) mg/dL
[2021-03-01 12:57] VITALS: BP 160/83; PULSE 54; TEMP 99.6
--- NOTE | 2021-03-01 22:59 | P.DS ---
Providers Date of admission: 02/27/21 18:02 Expected date of discharge: 03/01/21 Attending physician: Tam Peres Consults: 02/27/21 18:02 Consult Physician Urgent Consulting Provider: Mihir Olmedo Consult Reason/Comments: nstemi Do you want consulting provider notified?: Yes 02/28/21 11:01 Consult Physician Routine Consulting Provider: [facility] Consult Reason/Comments: Post Interventional patient Do you want consulting provider notified?: Already Contacted Primary care physician: Ramakrishna Segundo MD Hospital Course: Presenting complaint: Chest pain History of presenting complaint: The patient is a 50-year-old male with a PMH of EtOH abuse, tobacco abuse (currently smoking 1 pack per day) who presented to the emergency room with complaints of chest discomfort. The patient notes that his pain initially started 2 days ago when he noticed an occasional substernal and epigastric pressure-like discomfort, lasting only for a few minutes. The pain gradually became more frequent, rated at 7 out of 10 at its maximal intensity, lasting a varying amount of time, occurring every half hour or so, radiating up to the neck, nonpleuritic, with no alleviating or exacerbating features. He reported associated dyspnea along with diaphoresis and occasional nausea. The patient denied prior history of [place] or having undergone any cardiac testing. Patient subsequently went to see his primary care doctor today who advised him to go to the emergency room. At time of interview, the patient reports that his pain resolved after being started on the heparin drip. He denied additional complaints. Denied fever, chills, cough, abdominal pain, diarrhea, headaches, dizziness, visual disturbances. Laboratory evaluation in the emergency room was remarkable for troponin 0.159. EKG reveals sinus rhythm with sinus arrhythmia at [address]/T-wave changes noted as reviewed by me. Chest x-ray revealed mildly increased interstitial markings with no acute intrathoracic abnormalities noted. cardiac catheterization. Lesion in the circumflex was stented. Today: Doing well. Up and about. No cardiac symptoms. Good oral intake. Care was discussed with the patient. Okay by cardiology to be discharged. Consultation: [facility] On examination: VITAL SIGNS: 98.4, 55, 16, 143 with 85, 96% room air GENERAL APPEARANCE: BMI 31.9, sitting up in bed, comfortable HEENT: Normal external appearance of nose and ear. Oral cavity normal EYES: Pupils equal. Conjunctiva normal. NECK: JVD not raised. Mass not palpable. RESPIRATORY: Respiratory effort normal. Lungs decreased breath sounds CARDIOVASCULAR: First and second sounds normal. No edema. ABDOMEN: Soft. Liver and spleen not palpable. No tenderness. No mass palpable. PSYCHIATRY: Alert and oriented x3. Mood and affect normal. INVESTIGATIONS, reviewed in the clinical context: March 01: Potassium 4.7 creatinine 0.84 WBC 9.4 hemoglobin 15.9 platelets 232 potassium 4.3 creatinine 0.94 Troponin I 0.159, 0.166, 0.238 LDL 138 Influenza type A, diabetes, RSV, COVID 19: Not detected EKG tracing personally reviewed by me-normal sinus rhythm Chest x-ray film: Nothing acute Assessment and plan: -Acute non-Q-wave [place] Initially placed on IV heparin. Aspirin. -Coronary artery disease Cardiac catheterization with stent to circumflex. Patient in aspirin, Lipitor, beta ibrahima -Essential hypertension On beta ibrahima. lisinopril hydrochlorothiazide 20/12.5 -Hyperlipidemia On Lipitor -Chronic nicotine dependence cigarette smoker Nicotine patch -Obesity BMI 31.9 Weight loss measures and follow with PCP Disposition: Home Plan - Discharge Summary Discharge Rx Participant: No New Discharge Prescriptions: New Prasugrel [Effient] 10 mg PO DAILY 30 Days #30 tab Metoprolol Tartrate [Lopressor] 25 mg PO BID 30 Days #60 tab Atorvastatin [Lipitor] 80 mg PO HS 30 Days #30 tab Nitroglycerin Sl Tabs [Nitrostat] 0.4 mg SUBLINGUAL Q5M PRN 10 Days #10 tab PRN Reason: Chest Pain Lisinopril-Hctz 20-12.5 mg [Zestoretic 20-12.5] 1 each PO DAILY 30 Days #30 tab Nicotine 21Mg/24Hr Patch [Habitrol] 1 patch TRANSDERM DAILY 30 Days #30 patch Continue Aspirin EC [Ecotrin Low Dose] 81 mg PO HS Discharge Medication List Aspirin EC [Ecotrin Low Dose] 81 mg PO HS 02/27/21 [History] Atorvastatin [Lipitor] 80 mg PO HS 30 Days #30 tab 03/01/21 [Rx] Lisinopril-Hctz 20-12.5 mg [Zestoretic 20-12.5] 1 each PO DAILY 30 Days #30 tab 04/29/21 [Rx] Metoprolol Tartrate [Lopressor] 25 mg PO BID 30 Days #60 tab 03/01/21 [Rx] Nicotine 21Mg/24Hr Patch [Habitrol] 1 patch TRANSDERM DAILY 30 Days #30 patch 03/01/21 [Rx] Nitroglycerin Sl Tabs [Nitrostat] 0.4 mg SUBLINGUAL Q5M PRN 10 Days #10 tab 03/01/21 [Rx] Prasugrel [Effient] 10 mg PO DAILY 30 Days #30 tab 03/01/21 [Rx] Follow up Appointment(s)/Referral(s): Ramakrishna Segundo MD [Primary Care Provider] - 03/09/21 10:30 am Mihir Olmedo MD [STAFF PHYSICIAN] - 03/08/21 10:30 am ([facility] will call you with date/time of your recheck appt.) Patient Instructions/Handouts: Heart Attack (DC), After Radial Heart Catheterization (GEN) Discharge Disposition: HOME SELF-CARE
[2021-03-02] MEDS ORDERED: LISINOPRIL-HCTZ 20-25 MG 1 EACH TAB PO SCH (09:00)
[2021-03-02] MEDS ORDERED: PRASUGREL 10 MG TAB PO SCH (09:00)
[2021-03-02] MEDS ORDERED: LISINOPRIL-HCTZ 20-12.5 MG 1 EACH TAB PO SCH (09:00)
== END 2021-03-01 13:28 | disposition home or self-care (01) | DRG 247 ==
LOC: EC 15:48 → 3SCARD 18:02
PROVIDERS: ADMIT Hospitalist; ATTEND Hospitalist
PROC: B2111ZZ Fluoroscopy of Multiple Coronary Arteries using Low Osmolar Contrast (ICD-10-PCS; 2021-02-28)
PROC: 027034Z Dilation of Coronary Artery, One Artery with Drug-eluting Intraluminal Device, Percutaneous Approach (ICD-10-PCS; principal; 2021-02-28 10:00)
PROC: 4A023N7 Measurement of Cardiac Sampling and Pressure, Left Heart, Percutaneous Approach (ICD-10-PCS; 2021-02-28 10:00)
DX: I21.4 Non-ST elevation (NSTEMI) myocardial infarction (principal); I10 Essential (primary) hypertension; Z20.822 Contact with and (suspected) exposure to COVID-19; F10.10 Alcohol abuse, uncomplicated; F17.210 Nicotine dependence, cigarettes, uncomplicated; Z98.890 Other specified postprocedural states; Z79.82 Long term (current) use of aspirin; Z82.49 Family history of ischemic heart disease and other diseases of the circulatory system; I25.10 Atherosclerotic heart disease of native coronary artery without angina pectoris; E78.5 Hyperlipidemia, unspecified; Z68.31 Body mass index [BMI] 31.0-31.9, adult; E66.9 Obesity, unspecified
CPT/HCPCS: 36415; 71046; 80048; 80053; 80061; 83735; 84484; 85025; 85049; 85379; 85610; 85730; 87636; 93005; 93306; 93458; 99285

== ENCOUNTER 2021-09-07 14:53 | Inpatient (IN) | payer BC ==
[2021-09-07] MEDS ORDERED: SODIUM CHLORIDE 0.9% 500 ML 500 ML IV STA (15:25)
--- NOTE | 2021-09-07 15:29 | ED ---
General Adult HPI - General Chief complaint: Chest Pain Stated complaint: Chest pain Time Seen by Provider: 09/07/21 15:15 Source: patient, RN notes reviewed, old records reviewed Mode of arrival: ambulatory Limitations: no limitations - History of Present Illness Initial comments: Well-appearing 51-year-old male, alert and oriented 4, presents to the emergency room with complaints of chest pain with dizziness for one week. He states that the pain comes on with strenuous activity. 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 He states today the pain started when he was throwing his fifth pale of hay. He states that it took 20 minutes of rest before the pain resolved. He does have history of hypertension and a non-STEMI in February 2021. He had PCI done with 95% stenosis of the left circumflex with a stent placed. States that he was supposed to follow-up with cardiology in July but he missed that appointment due to working so many hours. He is a pack-a-day smoker. -: week(s) (1) Location: chest Radiation: non-radiation Severity scale (1-10): 0 Quality: sharp Consistency: now resolved Improves with: rest Worsens with: other (physical activity) Associated Symptoms: denies other symptoms Treatments Prior to Arrival: Aspirin - Related Data Home Medications Medication Instructions Recorded Confirmed Aspirin EC [Ecotrin Low Dose] 81 mg PO DAILY 02/27/21 09/07/21 Lisinopril-Hctz 20-12.5 mg 1 tab PO DAILY 09/07/21 09/07/21 [Zestoretic 20-12.5] Prasugrel [Effient] 10 mg PO HS 09/07/21 09/07/21 Previous Rx's Medication Instructions Recorded Atorvastatin [Lipitor] 80 mg PO HS 30 Days #30 tab 03/01/21 Metoprolol Tartrate [Lopressor] 25 mg PO BID 30 Days #60 tab 03/01/21 Allergies Allergy/AdvReac Type Severity Reaction Status Date / Time No Known Allergies Allergy Verified 09/07/21 16:08 Review of Systems ROS Statement: Those systems with pertinent positive or pertinent negative responses have been documented in the HPI. ROS Other: All systems not noted in ROS Statement are negative. Past Medical History Past Medical History: Hypertension History of Any Multi-Drug Resistant Organisms: None Reported Past Surgical History: Hernia Repair Past Anesthesia/Blood Transfusion Reactions: No Reported Reaction Past Psychological History: No Psychological Hx Reported Smoking Status: Current some day smoker Past Alcohol Use History: None Reported Past Drug Use History: Marijuana - Past Family History Father Family Medical History: Coronary Artery Disease (CAD) General Exam Limitations: no limitations General appearance: alert, in no apparent distress Head exam: Present: atraumatic, normocephalic, normal inspection Eye exam: Present: normal appearance, EOMI ENT exam: Present: normal exam, normal oropharynx, mucous membranes moist Neck exam: Present: normal inspection, full ROM. Absent: tenderness, meningismus Respiratory exam: Present: normal lung sounds bilaterally. Absent: respiratory distress, wheezes, rales, rhonchi, stridor, chest wall tenderness, accessory muscle use Cardiovascular Exam: Present: bradycardia, normal heart sounds GI/Abdominal exam: Present: soft, normal bowel sounds. Absent: distended, tenderness, guarding, rebound, rigid Back exam: Present: full ROM. Absent: tenderness, CVA tenderness (R), CVA tenderness (L) Neurological exam: Present: alert, oriented X3, normal gait Psychiatric exam: Present: normal affect, normal mood Skin exam: Present: warm, dry, intact, normal color. 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 Worsens with strenuous activity. Chest x-ray shows diffuse interstitial opacities. Patient denies any cough or shortness of breath. He has had no fevers. There is no evidence of leukocytosis. Troponin is positive at 0.543 patient will be admitted with a non-STEMI. EKG was reviewed with Dr. Gage. Patient took an aspirin and his prasugrel this morning. He was started on heparin and an inch of Nitropaste was applied. He denies pain at this time. - Lab Data Result diagrams: 09/07/21 15:59 09/07/21 15:59 Lab Results 09/07/21 09/07/21 09/07/21 Range/Units 15:59 15:59 15:59 WBC 9.2 (3.8-10.6) k/uL RBC 5.33 (4.30-5.90) m/uL Hgb 16.8 (13.0-17.5) gm/dL Hct 49.3 (39.0-53.0) % MCV 92.5 (80.0-100.0) fL MCH 31.5 (25.0-35.0) pg MCHC 34.1 (31.0-37.0) g/dL RDW 13.4 (11.5-15.5) % Plt Count 243 (150-450) k/uL MPV 7.9 Neutrophils % 57 % Lymphocytes % 30 % Monocytes % 7 % Eosinophils % 2 % Basophils % 1 % Neutrophils # 5.3 (1.3-7.7) k/uL Lymphocytes # 2.8 (1.0-4.8) k/uL Monocytes # 0.7 (0-1.0) k/uL Eosinophils # 0.2 (0-0.7) k/uL Basophils # 0.1 (0-0.2) k/uL PT 10.4 (9.0-12.0) sec INR 1.0 (<1.2) APTT 26.9 (22.0-30.0) sec Sodium (137-145) mmol/L Potassium (3.5-5.1) mmol/L Chloride (98-107) mmol/L Carbon Dioxide (22-30) mmol/L Anion Gap mmol/L BUN (9-20) mg/dL Creatinine (0.66-1.25) mg/dL Est GFR (CKD-EPI)AfAm (>60 ml/min/1.73 sqM) Est GFR (CKD-EPI)NonAf (>60 ml/min/1.73 sqM) Glucose (74-99) mg/dL Calcium (8.4-10.2) mg/dL Magnesium (1.6-2.3) mg/dL Total Bilirubin (0.2-1.3) mg/dL AST (17-59) U/L ALT (4-49) U/L Alkaline Phosphatase (38-126) U/L Troponin I (0.000-0.034) ng/mL Total Protein (6.3-8.2) g/dL Albumin (3.5-5.0) g/dL Urine Color Yellow Urine Appearance Clear (Clear) Urine pH 5.5 (5.0-8.0) Ur Specific [place] 1.007 (1.001-1.035) Urine Protein Negative (Negative) Urine Glucose (UA) Negative (Negative) Urine Ketones Negative (Negative) Urine Blood Negative (Negative) Urine Nitrite Negative (Negative) Urine Bilirubin Negative (Negative) Urine Urobilinogen <2.0 (<2.0) mg/dL Ur Leukocyte Esterase Negative (Negative) 09/07/21 09/07/21 Range/Units 15:59 15:59 WBC (3.8-10.6) k/uL RBC (4.30-5.90) m/uL Hgb (13.0-17.5) gm/dL Hct (39.0-53.0) % MCV (80.0-100.0) fL MCH (25.0-35.0) pg MCHC (31.0-37.0) g/dL RDW (11.5-15.5) % Plt Count (150-450) k/uL MPV Neutrophils % % Lymphocytes % % Monocytes % % Eosinophils % % Basophils % % Neutrophils # (1.3-7.7) k/uL Lymphocytes # (1.0-4.8) k/uL Monocytes # (0-1.0) k/uL Eosinophils # (0-0.7) k/uL Basophils # (0-0.2) k/uL PT (9.0-12.0) sec INR (<1.2) APTT (22.0-30.0) sec Sodium 136 L (137-145) mmol/L Potassium 4.8 (3.5-5.1) mmol/L Chloride 105 (98-107) mmol/L Carbon Dioxide 23 (22-30) mmol/L Anion Gap 8 mmol/L BUN 15 (9-20) mg/dL Creatinine 0.85 (0.66-1.25) mg/dL Est GFR (CKD-EPI)AfAm >90 (>60 ml/min/1.73 sqM) Est GFR (CKD-EPI)NonAf >90 (>60 ml/min/1.73 sqM) Glucose 109 H (74-99) mg/dL Calcium 10.0 (8.4-10.2) mg/dL Magnesium 2.1 (1.6-2.3) mg/dL Total Bilirubin 0.6 (0.2-1.3) mg/dL AST 31 (17-59) U/L ALT 16 (4-49) U/L Alkaline Phosphatase 52 (38-126) U/L Troponin I 0.543 H* (0.000-0.034) ng/mL Total Protein 7.5 (6.3-8.2) g/dL Albumin 4.1 (3.5-5.0) g/dL Urine Color Urine Appearance (Clear) Urine pH (5.0-8.0) Ur Specific [place] (1.001-1.035) Urine Protein (Negative) Urine Glucose (UA) (Negative) Urine Ketones (Negative) Urine Blood (Negative) Urine Nitrite (Negative) Urine Bilirubin (Negative) Urine Urobilinogen (<2.0) mg/dL Ur Leukocyte Esterase (Negative) Disposition Clinical Impression: Non-STEMI (non-ST elevated myocardial infarction), Bradycardia Disposition: ADMITTED IP TO THIS HOSP Decision Date: 09/07/21 Decision Time: 17:20
[2021-09-07 16:12] LABS: Basophils # (A) 0.1 k/uL (0-0.2); Basophils % (A) 1 %; Eosinophils # (A) 0.2 k/uL (0-0.7); Eosinophils % (A) 2 %; HCT 49.3 % (39.0-53.0); HGB 16.8 gm/dL (13.0-17.5); Lymphocytes # (A) 2.8 k/uL (1.0-4.8); Lymphocytes % (A) 30 %; MCH 31.5 pg (25.0-35.0); MCHC 34.1 g/dL (31.0-37.0); MCV 92.5 fL (80.0-100.0); Mean Platelet Volume 7.9; Monocytes # (A) 0.7 k/uL (0-1.0); Monocytes % (A) 7 %; Neutrophils # (A) 5.3 k/uL (1.3-7.7); Neutrophils % (A) 57 %; Platelet Count 243 k/uL (150-450); RBC 5.33 m/uL (4.30-5.90); RDW 13.4 % (11.5-15.5); WBC 9.2 k/uL (3.8-10.6)
[2021-09-07 16:14] LABS: Appearance,Urine Clear (Clear); Bilirubin,Urine Negative (Negative); Blood,Urine Negative (Negative); Color,Urine Yellow; Glucose,Urine (UA) Negative (Negative); Ketones,Urine Negative (Negative); Leukocyte Esterase,Urine Negative (Negative); Nitrite,Urine Negative (Negative); PH, Urine 5.5 (5.0-8.0); Protein,Urine Negative (Negative); Specific Gravity,Urine 1.007 (1.001-1.035); Urobilinogen,Urine <2.0 mg/dL (<2.0)
--- NOTE | 2021-09-07 16:26 | XR ---
EXAMINATION TYPE: XR chest 2V DATE OF EXAM: 09/07/2021 COMPARISON: 02/27/2021 HISTORY: 51-year-old male with chest pain TECHNIQUE: PA and lateral views FINDINGS: Heart normal size. Aorta within normal limits. Diffuse interstitial opacity appears slightly increase d from prior. No javon consolidation or pleural effusion. IMPRESSION: Diffuse interstitial opacity slightly increased from prior. Correlate for possible etiologies such as atypical/COVID pneumonia, pulmonary vascular congestion, interstitial pneumonitis.
[2021-09-07 16:28] LABS: ALT 16 U/L (4-49); AST 31 U/L (17-59); African American GFR (CKD) >90 (>60 ml/min/1.73 sqM); Albumin 4.1 g/dL (3.5-5.0); Alkaline Phosphatase 52 U/L (38-126); Anion Gap 8 mmol/L; Blood Urea Nitrogen 15 mg/dL (9-20); Carbon Dioxide 23 mmol/L (22-30); Chloride 105 mmol/L (98-107); Glucose 109 mg/dL (74-99); Magnesium 2.1 mg/dL (1.6-2.3); Non-African American GFR(CKD) >90 (>60 ml/min/1.73 sqM); Potassium 4.8 mmol/L (3.5-5.1); Sodium 136 mmol/L (137-145); Total Bilirubin 0.6 mg/dL (0.2-1.3); Total Protein 7.5 g/dL (6.3-8.2)
[2021-09-07 16:53] LABS: Partial Thromboplastin Time 26.9 sec (22.0-30.0); Prothrombin Time 10.4 sec (9.0-12.0)
[2021-09-07] MEDS ORDERED: NITROGLYCERIN OINT 1 INCH/GM PACKET TOPICAL STA (17:04)
[2021-09-07] MEDS ORDERED: HEPARIN SODIUM 1,000 UN/ML (10ML VL) IV ONE (17:06)
[2021-09-07] MEDS ORDERED: HEPARIN SODIUM 1,000 UN/ML (10ML VL) IV PRN (17:06)
[2021-09-07] MEDS: HEPARIN SOD,PORK IN 0.45% NACL 25,000 UNIT in 0.45% NACL 1 250ML.BAG IV SCH (17:48)
[2021-09-07] MEDS ORDERED: NALOXONE 0.4 MG/ML 1 ML VIAL IV PRN (18:14)
[2021-09-07] MEDS: SODIUM CHLORIDE 0.9% 1,000 ML IV SCH (19:18)
[2021-09-07] MEDS: ATORVASTATIN 80 MG TAB PO SCH (19:31)
[2021-09-07] MEDS: METOPROLOL TARTRATE 25 MG TAB PO SCH (19:31)
--- NOTE | 2021-09-07 21:37 | P.HPIM ---
History of Present Illness H&P Date: 09/07/21 The patient is a 48-year-old male with a PMH of active tobacco abuse (one pack per day), hypertension, hyperlipidemia coronary artery disease status post VT in 02/21 with subsequent stenting 1 who now presents to the emergency room with complaints of chest discomfort and shortness of breath. 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 He reports that over the past 1 month, he has had gradually worsening intermittent right chest discomfort. 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 He notes that over the past 1 week however, the pain has been occurring far more frequently, now multiple times a day, lasting for a few minutes at a time, alleviated with rest. The pain occasionally radiates up into his neck. He reports associated dyspnea but denied diaphoresis, nausea, vomiting, or dizziness. Reports that his symptoms are very similar to when he had his prior VT in February of this year. At time of evaluation, the patient reports that his pain has improved to a 1 out of 10. In the emergency room, an EKG revealed sinus bradycardia at 43 bpm with poor R-wave progression and T-wave inversions in leads 3 and V1. Troponin was 0.543. Review of systems: Pertinent positives and negatives as discussed in HPI, a complete review of systems was performed and all other systems are negative. Physical examination: General: non toxic, no distress, appears at stated age, obese Derm: no unusual rashes/lesions no unusual ecchymoses, warm, dry Head: atraumatic, normocephalic, symmetric Eyes: EOMI, no lid lag, anicteric sclera, pupils equal round reactive to light ENT: Nose and ears atraumatic, no thrush, no pharyngeal erythema Neck: No thyromegaly, no cervical lymphadenopathy, trachea midline, supple Mouth: no lip lesion, mucus membranes moist Cardiovascular: S1S2 reg, no murmur, positive posterior tibial pulse bilateral, no edema, capillary refill less than 2 seconds Lungs: CTA bilateral, no rhonchi, no rales , no accessory muscle use Abdominal: soft, nontender to palpation, no guarding, no appreciable organomegaly, normal bowel sounds Ext: no gross muscle atrophy, muscle strength 5 out of 5 in all 4 extremities grossly, no contractures, Neuro: CN II-XI grossly intact, light touch intact all 4 extremities, finger to nose within normal limits, Psych: Alert, oriented, appropriate affect Assessment/plan Non-ST elevation VT -Cardiology consult -Cardiac monitoring -Continue to trend troponin -Continue with heparin infusion -Patient with his aspirin dose this morning -Hold off on Lopressor in setting of bradycardia -Strongly advised on importance of tobacco use cessation Chronic conditions: Hypertension, hyperlipidemia -Continue with home meds -Hold off on Lopressor in setting of bradycardia DVT prophylaxis -Heparin infusion The patient is admitted with an anticipated greater than 2 midnight stay for evaluation of NSTEMI CODE STATUS: Full Code Discussed with: Patient Anticipated discharge date: 09/[address]: Home Past Medical History Past Medical History: Hypertension History of Any Multi-Drug Resistant Organisms: None Reported Past Surgical History: Hernia Repair Past Anesthesia/Blood Transfusion Reactions: No Reported Reaction Past Psychological History: No Psychological Hx Reported Smoking Status: Current some day smoker Past Alcohol Use History: None Reported Past Drug Use History: Marijuana - Past Family History Father Family Medical History: Coronary Artery Disease (CAD) Medications and Allergies Home Medications Medication Instructions Recorded Confirmed Type Aspirin EC [Ecotrin Low Dose] 81 mg PO DAILY 02/27/21 09/07/21 History Atorvastatin [Lipitor] 80 mg PO HS 30 Days #30 tab 03/01/21 09/07/21 Rx Metoprolol Tartrate [Lopressor] 25 mg PO BID 30 Days #60 tab 03/01/21 09/07/21 Rx Lisinopril-Hctz 20-12.5 mg 1 tab PO DAILY 09/07/21 09/07/21 History [Zestoretic 20-12.5] Prasugrel [Effient] 10 mg PO HS 09/07/21 09/07/21 History Allergies Allergy/AdvReac Type Severity Reaction Status Date / Time No Known Allergies Allergy Verified 09/07/21 16:08 Physical Exam Vitals: Vital Signs Temp Pulse Pulse Resp BP Pulse Ox 09/07/21 15:23 43 L 09/07/21 15:08 97.6 F 48 L 18 127/82 97 Intake and Output 09/07/21 09/07/21 09/07/21 06:59 14:59 22:59 Other: Weight 99.79 kg Results CBC & Chem 7: 09/07/21 15:59 09/07/21 15:59 Labs: Abnormal Lab Results - Last 24 Hours (Table) 09/07/21 09/07/21 09/07/21 Range/Units 15:59 15:59 19:10 Sodium 136 L (137-145) mmol/L Glucose 109 H (74-99) mg/dL Troponin I 0.543 H* 0.662 H* (0.000-0.034) ng/mL
[2021-09-07] MEDS ORDERED: NICOTINE 7MG/24HR PATCH TRANSDERM STA (22:43)
[2021-09-08 08:40] LABS: Basophils # (A) 0.1 k/uL (0-0.2); Basophils % (A) 1 %; Eosinophils # (A) 0.2 k/uL (0-0.7); Eosinophils % (A) 2 %; HCT 43.5 % (39.0-53.0); HGB 14.3 gm/dL (13.0-17.5); Lymphocytes # (A) 3.1 k/uL (1.0-4.8); Lymphocytes % (A) 33 %; MCH 30.8 pg (25.0-35.0); MCV 93.4 fL (80.0-100.0); Monocytes # (A) 0.6 k/uL (0-1.0); Monocytes % (A) 6 %; Neutrophils # (A) 5.2 k/uL (1.3-7.7); Neutrophils % (A) 55 %; Platelet Count 222 k/uL (150-450); RBC 4.66 m/uL (4.30-5.90); RDW 13.5 % (11.5-15.5); WBC 9.4 k/uL (3.8-10.6)
[2021-09-08 08:53] LABS: Prothrombin Time 10.6 sec (9.0-12.0)
[2021-09-08] MEDS: LISINOPRIL-HCTZ 20-12.5 MG 1 EACH TAB PO SCH (09:57)
[2021-09-08] MEDS: METOPROLOL TARTRATE 25 MG TAB PO SCH (09:58)
--- NOTE | 2021-09-08 16:04 | P.PN ---
Subjective Progress Note Date: 09/08/21 Principal diagnosis: chest pain Patient is a 51-year-old male with hypertension, dyslipidemia, coronary artery disease status post myocardial infarction 421 and ongoing tobacco abuse who presented to the hospital complaints of chest pain. In the ER he underwent extensive evaluation. His vital signs on arrival within normal limits. Initial troponin was mildly elevated. EKG showed marked bradycardia with no significant ST-T wave changes. He was given ASA, Hepain gtt, and metoprolol was held. He was admitted for further monitoring. Caridology was consulted. CXR showed instertial opacifities but COVID testing was negative. He remained bradycardiac and his troponin remined flat. Patient seen and examined at bedside. Has not gotten up but no longer has chest pain or shortness of breath. No nausea or vomiting. No diarrhea. General: non toxic, no distress, appears at stated age Derm: warm, dry Head: atraumatic, normocephalic, symmetric Eyes: EOMI, no lid lag, anicteric sclera Mouth: no lip lesion, mucus membranes moist Cardiovascular: S1S2 reg, no murmur, positive posterior tibial pulse bilateral, Lungs: CTA bilateral, no rhonchi, no rales , no accessory muscle use Abdominal: soft, nontender to palpation, no guarding, no appreciable organomegaly Ext: no gross muscle atrophy, no edema, no contractures Neuro: CN II-XI grossly intact, no focal neuro deficits Psych: Alert, oriented, appropriate affect Bradycardia Elevated Troponin, flat - tele - heparin gtt - await cardio recs - echo HTN - Metoprolol on hold due to bradycardia - follow BP HLD - statin DVT prophylaxis: heparin gtt Discussed with: patient, nursing Anticipated discharge: in 1-[address]: home A total of 35 minutes was spent on the care of this complex patient more than 50% of the time was spent in counseling and care coordination. Objective - Vital Signs Vital signs: Vital Signs Temp 98.1 F 09/08/21 12:00 Pulse 51 L 09/08/21 14:31 Resp 18 09/08/21 12:00 BP 138/79 09/08/21 14:31 Pulse Ox 96 09/08/21 12:00 Intake & Output 09/07/21 09/08/21 09/08/21 18:59 06:59 18:59 Intake Total 1032.833 500 Balance 1032.833 500 Weight 99.79 kg 101.3 kg Intake: Intake, IV Titration 62.833 500 Amount Heparin Sod,Pork in 0.45% 62.833 NaCl 25,000 unit In 0.45 % NaCl 1 250ml.bag @ 10. 021 UNITS/KG/HR 10 mls/hr IV .Q24H [facility] Rx#: [id number] Sodium Chloride 0.9% 1, 500 000 ml @ 75 mls/hr IV . [id number] [facility] Rx#:[id number] Oral 970 Other: Voiding Method Toilet # Voids 1 - Labs CBC & Chem 7: 09/08/21 08:23 09/07/21 15:59 Labs: Abnormal Lab Results - Last 24 Hours (Table) 09/07/21 09/07/21 09/07/21 Range/Units 15:59 15:59 19:10 APTT (22.0-30.0) sec Sodium 136 L (137-145) mmol/L Glucose 109 H (74-99) mg/dL Troponin I 0.543 H* 0.662 H* (0.000-0.034) ng/mL 09/07/21 09/08/21 09/08/21 Range/Units 23:44 08:23 10:39 APTT 33.4 H 44.5 H (22.0-30.0) sec Sodium (137-145) mmol/L Glucose (74-99) mg/dL Troponin I 0.696 H* (0.000-0.034) ng/mL
[2021-09-08] MEDS ORDERED: NICOTINE 7MG/24HR PATCH TRANSDERM STA (16:47)
[2021-09-08] MEDS ORDERED: ALPRAZolam 0.25 MG TAB PO PRN (17:40)
[2021-09-08] MEDS ORDERED: ASPIRIN 325 MG TAB PO STA (17:40)
[2021-09-08] MEDS ORDERED: NITROGLYCERIN SL TABS 0.4 MG TAB SUBLINGUAL PRN (17:40)
[2021-09-08] MEDS ORDERED: ALPRAZolam 0.5 MG TAB PO PRN (17:40)
[2021-09-08] MEDS ORDERED: ATORVASTATIN 80 MG TAB PO STA (17:40)
--- NOTE | 2021-09-08 17:45 | P.CRDCN ---
History of Present Illness History of present illness: HISTORY OF PRESENTING ILLNESS This is a pleasant 51-year-old male history of tobacco abuse, hypertension, hyperlipidemia, coronary artery disease status post PCI circumflex February 2021 who presents secondary to 3 days of off-and-on chest pain. Patient minutes he had been doing fairly well since his stent and February 2021 without any further episodes of chest pain. He states on Friday however he started feeling a chest pressure sensation which felt exactly like his prior stenting and this was off-and-on. He therefore decided to come to emergency department since it did not go away. He is also concerned as his heart rate has been in the 40s occasionally and therefore he had stopped taking one of his metoprolol was on Friday morning. He was given nitroglycerin with improvement and is currently chest pain-free. He was found to have elevated troponins 0.6. EGD showed sinus bradycardia with no significant ST or T-wave abnormalities. REVIEW OF SYSTEMS At the time of my exam: CONSTITUTIONAL: Denies fever or chills. CARDIOVASCULAR: +chest pain, no shortness of breath, orthopnea, PND or palpitations. RESPIRATORY: Denies cough. GASTROINTESTINAL: Denies abdominal pain, diarrhea, constipation, nausea or vomiting. MUSCULOSKELETAL: Denies myalgias. NEUROLOGIC: Denies numbness, tingling or weakness. ENDOCRINE: Denies fatigue, weight change, polydipsia or polyurina. GENITOURINARY: Denies burning, hematuria or urgency with micturation. HEMATOLOGIC: Denies history of anemia or bleeding. PHYSICAL EXAMINATION Vital signs reviewed. CONSTITUTIONAL: No apparent distress. HEENT: Head is normocephalic. Pupils are equal, round. Sclerae anicteric. Mucous membranes of the mouth are moist. No JVD. No carotid bruit. CHEST EXAMINATION: Lungs are clear to auscultation. No chest wall tenderness is noted on palpation or with deep breathing. HEART EXAMINATION: Regular rate and rhythm. S1, S2 heard. No murmurs, gallops or rub. ABDOMEN: Soft, nontender. Positive bowel sounds. EXTREMITIES: 2+ peripheral pulses, no lower extremity edema and no calf tenderness. NEUROLOGIC EXAMINATION: Patient is awake, alert and oriented x3. ASSESSMENT 1. Non-STEMI likely type I mechanism 2. Hypertension 3. Hyperlipidemia 4. Coronary artery disease status post PCI circumflex 02/20/2021 5. Tobacco abuse PLAN Continue heparin drip. Continue with dual antiplatelets. No beta blockers at this time given significant bradycardia. Discussed recommendations for heart catheterization with possible PCI and patient is agreeable. We will proceed likely 09/09. Check 2-D echo. Past Medical History Past Medical History: Hypertension History of Any Multi-Drug Resistant Organisms: None Reported Past Surgical History: Hernia Repair Past Anesthesia/Blood Transfusion Reactions: No Reported Reaction Past Psychological History: No Psychological Hx Reported Smoking Status: Current some day smoker Past Alcohol Use History: None Reported Past Drug Use History: Marijuana - Past Family History Father Family Medical History: Coronary Artery Disease (CAD) Medications and Allergies Home Medications Medication Instructions Recorded Confirmed Type Aspirin EC [Ecotrin Low Dose] 81 mg PO DAILY 02/27/21 09/07/21 History Atorvastatin [Lipitor] 80 mg PO HS 30 Days #30 tab 03/01/21 09/07/21 Rx Metoprolol Tartrate [Lopressor] 25 mg PO BID 30 Days #60 tab 03/01/21 09/07/21 Rx Lisinopril-Hctz 20-12.5 mg 1 tab PO DAILY 09/07/21 09/07/21 History [Zestoretic 20-12.5] Prasugrel [Effient] 10 mg PO HS 09/07/21 09/07/21 History Allergies Allergy/AdvReac Type Severity Reaction Status Date / Time No Known Allergies Allergy Verified 09/07/21 16:08 Physical Exam Vitals: Vital Signs Temp Pulse Resp BP Pulse Ox 09/08/21 15:00 98 F 51 L 20 138/79 96 09/08/21 12:00 98.1 F 52 L 18 155/90 96 09/08/21 09:00 98.6 F 52 L 18 153/77 97 09/08/21 04:00 97.7 F 54 L 18 118/58 96 09/08/21 02:10 98.1 F 54 L 18 160/83 95 09/08/21 02:00 54 L 18 09/07/21 20:00 97.6 F 41 L 16 131/75 96 09/07/21 19:21 98.1 F 54 L 18 177/97 95 Intake and Output 09/08/21 09/08/21 09/08/21 06:59 14:59 22:59 Intake Total 62.833 500 Balance 62.833 500 Intake: Intake, IV Titration 62.833 500 Amount Heparin Sod,Pork in 0.45% 62.833 NaCl 25,000 unit In 0.45 % NaCl 1 250ml.bag @ 10. 021 UNITS/KG/HR 10 mls/hr IV .Q24H [facility] Rx#: [id number] Sodium Chloride 0.9% 1, 500 000 ml @ 75 mls/hr IV . [id number] [facility] Rx#:[id number] Other: Voiding Method Toilet # Voids 1 Weight 101.3 kg Results 09/08/21 08:23 09/07/21 15:59 Cardiac Enzymes 09/07/21 09/08/21 Range/Units 19:10 10:39 Troponin I 0.662 H* 0.696 H* (0.000-0.034) ng/mL Coagulation 09/07/21 09/08/21 09/08/21 Range/Units 23:44 08:23 08:23 PT 10.6 (9.0-12.0) sec APTT 33.4 H 44.5 H (22.0-30.0) sec CBC 09/08/21 Range/Units 08:23 WBC 9.4 (3.8-10.6) k/uL RBC 4.66 (4.30-5.90) m/uL Hgb 14.3 (13.0-17.5) gm/dL Hct 43.5 (39.0-53.0) % Plt Count 222 (150-450) k/uL Current Medications Generic Name Dose Route Start Last Admin Trade Name Freq PRN Reason Stop Dose Admin Aspirin 81 mg 09/08/21 15:45 Aspirin 81 Mg PO DAILY [facility] Atorvastatin Calcium 80 mg 09/07/21 21:00 09/07/21 19:31 Atorvastatin 80 Mg Tab PO 80 mg HS [facility] Administration Lisinopril/HCTZ 1 each 09/08/21 09:00 09/08/21 09:57 Lisinopril-Hctz 20-12.5 Mg 1 Each Tab PO 1 each DAILY [facility] Administration Heparin Sodium (Porcine) 0 unit 09/07/21 17:06 Heparin Sodium 1,000 Un/Ml (10ml Vl) IV PER PROTOCOL PRN Low PTT Protocol Heparin Sodium/Sodium Chloride 250 mls @ 10 mls/hr 09/07/21 17:15 09/08/21 00:05 25,000 unit/ Sodium Chloride IV 13.03 units/kg/hr .Q24H [facility] 13.003 mls/hr Titration Protocol 10.021 UNITS/KG/HR Sodium Chloride 1,000 mls @ 75 mls/hr 09/07/21 18:15 09/07/21 19:18 Saline 0.9% IV 75 mls/hr .[id number] [facility] Administration Naloxone HCl 0.2 mg 09/07/21 18:14 Naloxone 0.4 Mg/Ml 1 Ml Vial IV Q2M PRN Opioid Reversal Prasugrel 10 mg 09/08/21 21:00 Prasugrel 10 Mg Tab PO HS [facility] Intake and Output 09/08/21 09/08/21 09/08/21 06:59 14:59 22:59 Intake Total 62.833 500 Balance 62.833 500 Intake: Intake, IV Titration 62.833 500 Amount Heparin Sod,Pork in 0.45% 62.833 NaCl 25,000 unit In 0.45 % NaCl 1 250ml.bag @ 10. 021 UNITS/KG/HR 10 mls/hr IV .Q24H [facility] Rx#: [id number] Sodium Chloride 0.9% 1, 500 000 ml @ 75 mls/hr IV . [id number] [facility] Rx#:[id number] Other: Voiding Method Toilet # Voids 1 Weight 101.3 kg 09/08/21 08:23 09/07/21 15:59
[2021-09-08] MEDS: HEPARIN SOD,PORK IN 0.45% NACL 25,000 UNIT in 0.45% NACL 1 250ML.BAG IV SCH (17:50)
[2021-09-08] MEDS: ASPIRIN 81 MG PO SCH (17:53)
[2021-09-08] MEDS: SODIUM CHLORIDE 0.9% 1,000 ML in EMPTY BAG 1 BAG IV SCH (17:54)
[2021-09-08] MEDS: SODIUM CHLORIDE 0.9% 1,000 ML IV SCH (17:54)
[2021-09-08] MEDS: PRASUGREL 10 MG TAB PO SCH (21:00)
[2021-09-08] MEDS: ATORVASTATIN 80 MG TAB PO SCH (21:01)
[2021-09-09 06:07] LABS: Glucose,Whole Blood 87 mg/dL (75-99)
[2021-09-09] MEDS: ASPIRIN 81 MG PO SCH (06:47)
[2021-09-09] MEDS: LISINOPRIL-HCTZ 20-12.5 MG 1 EACH TAB PO SCH (06:47)
[2021-09-09] MEDS ORDERED: HEPARIN SODIUM,PORCINE 10,000 UNIT in SODIUM CHLORIDE 0.9% 1,000 ML IRRIGATION PRN (07:00)
[2021-09-09] MEDS ORDERED: HEPARIN SODIUM,PORCINE 2,500 UNIT in SODIUM CHLORIDE 0.9% 250 ML IRRIGATION PRN (07:00)
[2021-09-09] MEDS: SODIUM CHLORIDE 0.9% 1,000 ML IV SCH ×3 (08:47→21:22)
[2021-09-09] MEDS ORDERED: fentaNYL (PF) 50 MCG/ML 2 ML AMP ONE (11:00)
[2021-09-09] MEDS ORDERED: LIDOCAINE 1% INJ 10MG/ML (20 ML MDV) ONE (11:00)
[2021-09-09] MEDS ORDERED: VERAPAMIL 2.5 MG/ML 2 ML AMP ONE (11:00)
[2021-09-09] MEDS ORDERED: HEPARIN SODIUM 1,000 UN/ML (10ML VL) ONE (11:01)
[2021-09-09] MEDS ORDERED: IV FLUID CONTINUATION 900 ML IV ONE (11:15)
[2021-09-09] MEDS: MIDAZOLAM 2 MG/2 ML VIAL IVP ONE ×2 (11:21→12:19)
[2021-09-09] MEDS ORDERED: fentaNYL (PF) 50 MCG/ML 2 ML AMP IVP ONE (11:21)
[2021-09-09] MEDS ORDERED: LIDOCAINE 1% INJ 10MG/ML (20 ML MDV) SQ ONE (11:22)
[2021-09-09] MEDS ORDERED: VERAPAMIL SYRINGE (5 MG/10 ML) INTRAARTER ONE (11:24)
[2021-09-09] MEDS: HEPARIN SODIUM 1,000 UN/ML (10ML VL) IVP ONE ×3 (11:30→12:42)
[2021-09-09] MEDS: NITROGLYCERIN 1000MCG/10ML SYRINGE INTRACORON ONE ×4 (12:05→12:30)
[2021-09-09] MEDS ORDERED: IOPAMIDOL-370 125ML BTL INJ ONE (12:14)
[2021-09-09] MEDS ORDERED: IOPAMIDOL-300 50ML BTL INJ ONE (12:24)
[2021-09-09] MEDS ORDERED: IOPAMIDOL-370 50ML BTL INJ ONE ×2 (12:25→12:35)
--- NOTE | 2021-09-09 14:04 | P.PN ---
Subjective Progress Note Date: 09/09/21 Principal diagnosis: chest pain Patient is a 51-year-old male with hypertension, dyslipidemia, coronary artery disease status post myocardial infarction 421 and ongoing tobacco abuse who presented to the hospital complaints of chest pain. In the ER he underwent extensive evaluation. His vital signs on arrival within normal limits. Initial troponin was mildly elevated. EKG showed marked bradycardia with no significant ST-T wave changes. He was given ASA, Hepain gtt, and metoprolol was held. He was admitted for further monitoring. Caridology was consulted. CXR showed interstitial opacities but COVID testing was negative. He remained bradycardiac and his troponin remined flat. He was seen by cardiology and underwent cath on 09/09 with stent X 3. Patient seen and examined at bedside. Feeling good no complaints of chest pain, on wrist pain. at bedside. All questions answered. Had a prolonged discussion about the need for smoking cessation, habit breaks, gum vs patch vs vaping. General: non toxic, no distress, appears at stated age Derm: warm, dry Head: atraumatic, normocephalic, symmetric Eyes: EOMI, no lid lag, anicteric sclera Mouth: no lip lesion, mucus membranes moist Cardiovascular: S1S2 reg, no murmur, positive posterior tibial pulse bilateral, Lungs: Decreased bs bilateral, no rhonchi, no rales , no accessory muscle use Abdominal: soft, nontender to palpation, no guarding, no appreciable organomegaly Ext: no gross muscle atrophy, no edema, no contractures Neuro: CN II-XI grossly intact, no focal neuro deficits Psych: Alert, oriented, appropriate affect Bradycardia NSTEMI s/p PCI with stent X 3 - tele - lipitor, no BB due to bradycardia - dual antiplatelet - echo pending HTN, elevated - increase lisinopril - Metoprolol on hold due to bradycardia - follow BP HLD - statin DVT prophylaxis: heparin gtt Discussed with: patient, nursing Anticipated discharge: in 1-[address]: home A total of 35 minutes was spent on the care of this complex patient more than 50% of the time was spent in counseling and care coordination. Objective - Vital Signs Vital signs: Vital Signs Temp 97.9 F 09/09/21 13:30 Pulse 48 L 09/09/21 13:48 Resp 16 09/09/21 13:48 BP 170/85 09/09/21 13:48 Pulse Ox 99 09/09/21 13:48 Intake & Output 09/08/21 09/09/21 09/09/21 19:59 06:59 18:59 Intake Total 650 Output Total 500 Balance 150 Weight Intake: IV 450 Intake, IV Titration 200 Amount Heparin Sod,Pork in 0.45% NaCl 25,000 unit In 0.45 % NaCl 1 250ml.bag @ 10. 021 UNITS/KG/HR 10 mls/hr IV .Q24H KATT Rx#: [id number] Sodium Chloride 0.9% 1, 000 ml @ 75 mls/hr IV . [id number] KATT Rx#:[id number] Sodium Chloride 0.9% 1, 200 000 ml In Empty Bag 1 bag @ 1 ML/KG/HR 101.3 mls/ hr IV .[id number] KATT Rx#: [id number] Oral 0 Output: Urine 500 Other: # Voids 1 - Labs CBC & Chem 7: 09/08/21 08:23 09/07/21 15:59
[2021-09-09] MEDS ORDERED: LISINOPRIL-HCTZ 20-12.5 MG 1 EACH TAB PO STA (14:15)
[2021-09-09 14:16] VITALS: RESP 18
[2021-09-09] MEDS: HEPARIN SOD,PORK IN 0.45% NACL 25,000 UNIT in 0.45% NACL 1 250ML.BAG IV SCH (18:15)
[2021-09-09] MEDS: SODIUM CHLORIDE 0.9% 1,000 ML in EMPTY BAG 1 BAG IV SCH ×2 (18:15→21:22)
[2021-09-09] MEDS: ATORVASTATIN 80 MG TAB PO SCH (20:09)
[2021-09-09] MEDS: PRASUGREL 10 MG TAB PO SCH (20:09)
[2021-09-09] MEDS ORDERED: RX INFO: IV CONTRAST WAS GIVEN 1 EACH MISC MISCELLANE PRN (21:09)
[2021-09-09] MEDS ORDERED: ZOLPIDEM 5 MG TAB PO PRN (21:09)
[2021-09-09] MEDS ORDERED: NITROGLYCERIN SL TABS 0.4 MG TAB SUBLINGUAL PRN (21:09)
[2021-09-09] MEDS ORDERED: MAG HYDROX/AL HYDROX/SIMETH 30 ML CUP PO PRN (21:09)
[2021-09-09] MEDS ORDERED: ATROPINE SULFATE 0.1 MG/ML 10ML SYRINGE IV PRN (21:09)
--- NOTE | 2021-09-09 21:09 | P.PRCINT ---
Percutaneous Coronary Int. - Percutaneous Coronary Intervention Percutaneous Coronary Intervention: PROCEDURES PERFORMED: Heart catheterization, bilateral coronary angiography, PCI overlapping proximal portion of the circumflex stent with a 3.5 x 8 mm Xience RADHA, PCI distal end of stent with overlapping 3.25 x 12 and 3.0 x 8 mm Xience RADHA, blown angioplasty of stent stenosis with a 3.75 noncompliant balloon. INDICATION: Non-STEMI HISTORY: Patient is a 51-year-old male with a history of tobacco abuse, coronary artery disease status post PCI circumflex approximately 8 months ago. Patient presented with new onset of chest pain which felt exactly the same as prior non- STEMI. Therefore recommendation was for heart catheterization. CONSENT:I have discussed the risks, benefits and alternative therapies for the above-mentioned procedure and for both sedation/analgesia as well as necessary blood product administration, if indicated, as they pertain to this patient. The patient has indicated understanding and acceptance of the risks and procedures discussed. PROCEDURE: After the risks, benefits and alternatives of the above mentioned procedure explained in detail with the patient, informed consent was obtained. Patient was taken to the catheterization lab and prepped and draped in usual fashion. 1% lidocaine was used to anesthetize the right radial artery. A 6- Scottish sheath was placed in the right radial artery using modified Seldinger technique. Left coronary angiography was performed with a 5-Scottish JL 3.5 catheter and right coronary angiography was performed with a 5-Scottish JR5 catheter in various views. A 5-Scottish FR5 catheter was inserted into the left ventricle and pressure measurements were obtained. The decision was made to perform PCI of the left circumflex. There was some in- stent stenosis as well as more proximal and more distal disease. Therefore initial balloon angioplasty was performed with a 2.5 x 12 mm balloon. This was achieved with the help of a Guideliner as the circumflex came off at an acute angle. Next PCI of the distal circumflex was performed with a 3.25 x 12 mm and overlapping 3.0 x 8 mm Xience RADHA. The proximal portion was covered with a 3.5 x 8 mm Xience RADHA. The midportion was postdilated with a 3.75 noncompliant balloon. Preintervention there was 85% stenosis and HETAL-3 flow and postintervention there was 0% stenosis and HETAL-3 flow. The right radial sheath was removed and a TR band was placed with hemostasis achieved. The patient tolerated the procedure well. Patient was transported back to the post catheterization holding area in stable condition. Conscious Sedation: Patient was monitored under the direct supervision of vision of myself for conscious sedation using Versed and fentanyl for a total duration of 76 minutes HEMODYNAMICS: Aorta: 134/78 LV: 132/4, LVEDP 21 SELECTIVE CORONARY ARTERIOGRAPHY: LEFT MAIN: The left main is a large caliber vessel which bifurcates into the LAD and circumflex. There is no significant stenosis. LEFT ANTERIOR DESCENDING CORONARY ARTERY: LAD is a large caliber vessel which wraps around to the apex. There are mild luminal irregularities. LEFT CIRCUMFLEX CORONARY ARTERY: Left circumflex is a moderate to large caliber vessel. There is a long proximal to mid circumflex stent with proximal 50-60% edge stenosis, tandem 85% and 80% instent stenosis and more distal 70% stent edge stenosis. RIGHT CORONARY ARTERY: The right coronary artery is a large caliber vessel which gives off a PDA and PLV branch and is the dominant vessel. There is proximal RCA 40-50% stenosis and otherwise mild luminal irregularities. FINAL IMPRESSION: 1. CAD as described above including diffuse circumflex disease including 70-85% stenosis, s/p PCI overlapping proximal portion of the circumflex stent with a 3.5 x 8 mm Xience RADHA, PCI distal end of stent with overlapping 3.25 x 12 and 3.0 x 8 mm Xience RADHA, blown angioplasty of stent stenosis with a 3.75 noncompliant balloon. 2. Mildly elevated left sided filling pressures PLAN: 1. Aggressive risk factor modification per most recent ACC/AHA guidelines. 2. Continue dual antiplatelets for 12 months. 3. Patient has been having sinus bradycardia with HR's in the 40's and unclear if he will be able to tolerate BBlocker. 4. Tobacco cessation.
[2021-09-09] MEDS ORDERED: SODIUM CHLORIDE 0.9% 1,000 ML IV SCH (21:15)
[2021-09-10] MEDS: ASPIRIN 81 MG PO SCH (08:20)
[2021-09-10 08:52] LABS: African American GFR (CKD) >90 (>60 ml/min/1.73 sqM); Anion Gap 10 mmol/L; Blood Urea Nitrogen 8 mg/dL (9-20); Calcium 9.5 mg/dL (8.4-10.2); Carbon Dioxide 21 mmol/L (22-30); Chloride 108 mmol/L (98-107); Glucose 82 mg/dL (74-99); Non-African American GFR(CKD) >90 (>60 ml/min/1.73 sqM); Potassium 3.9 mmol/L (3.5-5.1); Sodium 139 mmol/L (137-145)
[2021-09-10] MEDS ORDERED: LISINOPRIL-HCTZ 20-12.5 MG 1 EACH TAB PO SCH (09:00)
[2021-09-10 09:02] VITALS: TEMP 98
[2021-09-10] MEDS ORDERED: amLODIPine 5 MG TAB PO SCH (09:30)
--- NOTE | 2021-09-10 10:00 | ECHOF ---
Referral Reason:chest pain MEASUREMENTS -------- HEIGHT: 152.4 cm WEIGHT: 97.5 kg BP: RVIDd: 2.9 cm (< 3.3) IVSd: 1.3 cm (0.6 - 1.1) LVIDd: 5.3 cm (3.9 - 5.3) LVPWd: 1.2 cm (0.6 - 1.1) IVSs: 1.5 cm LVIDs: 3.8 cm LVPWs: 1.5 cm LA Diam: 4.8 cm (2.7 - 3.8) LAESV Index (A-L): 38.18 ml/m Ao Diam: 3.4 cm (2.0 - 3.7) AV Cusp: 2.1 cm (1.5 - 2.6) LA Diam: 5.2 cm (2.7 - 3.8) MV EXCURSION: 23.818 mm (> 18.000) MV EF SLOPE: 109 mm/s (70 - 150) EPSS: 0.5 cm MV E Jhony: 0.62 m/s MV DecT: 253 ms MV A Jhony: 0.77 m/s MV E/A Ratio: 0.81 FINDINGS -------- Sinus rhythm. This was a technically adequate study. The left ventricular size is normal. There is borderline concentric left ventricular hypertrophy. Overall left ventricular systolic function is low-normal with, an EF between 50 - 55 %. The right ventricle is normal in size. LA is moderately dilated 34-39 ml/m2 The right atrial size is normal. There is mild aortic valve sclerosis. There is no evidence of aortic regurgitation. The mitral valve is normal. Mild mitral regurgitation is present. The tricuspid valve appears structurally normal. Mild tricuspid regurgitation present. There is no pulmonic regurgitation present. The aortic root size is normal. There is no pericardial effusion. CONCLUSIONS -------- 1. There is borderline concentric left ventricular hypertrophy. 2. Overall left ventricular systolic function is low-normal with, an EF between 50 - 55 %. 3. LA is moderately dilated 34-39 ml/m2 4. There is mild aortic valve sclerosis. 5. Mild mitral regurgitation is present. 6. Mild tricuspid regurgitation present. [employer]: Maggie Cohen RDCS
[2021-09-10] MEDS: SODIUM CHLORIDE 0.9% 1,000 ML in EMPTY BAG 1 BAG IV SCH (10:48)
[2021-09-10] MEDS: SODIUM CHLORIDE 0.9% 1,000 ML IV SCH (10:49)
[2021-09-10 11:31] VITALS: BP 152/80; PULSE 55
--- NOTE | 2021-09-10 13:47 | P.PN ---
Subjective Progress Note Date: 09/10/21 HISTORY OF PRESENTING ILLNESS This is a pleasant 51-year-old male history of tobacco abuse, hypertension, hyperlipidemia, coronary artery disease status post PCI circumflex February 2021 who presents secondary to 3 days of off-and-on chest pain. Patient minutes he had been doing fairly well since his stent and February 2021 without any further episodes of chest pain. He states on Friday however he started feeling a chest pressure sensation which felt exactly like his prior stenting and this was off-and-on. He therefore decided to come to emergency department since it did not go away. He is also concerned as his heart rate has been in the 40s occasionally and therefore he had stopped taking one of his metoprolol was on Friday morning. He was given nitroglycerin with improvement and is currently chest pain-free. He was found to have elevated troponins 0.6. EGD showed sinus bradycardia with no significant ST or T-wave abnormalities. 09/10/21 Patient is status post cardiac catheterization with PCI to the circumflex. Patient denies chest pain or pressure. He denies shortness of breath. P atient's blood pressure remains elevated with a systolic in the 170s. He has been bradycardiac overnight. PHYSICAL EXAMINATION Vital signs reviewed. CONSTITUTIONAL: No apparent distress. HEENT: Head is normocephalic. Pupils are equal, round. Sclerae anicteric. Mucous membranes of the mouth are moist. No JVD. No carotid bruit. CHEST EXAMINATION: Lungs are clear to auscultation. No chest wall tenderness is noted on palpation or with deep breathing. HEART EXAMINATION: Regular rate and rhythm. S1, S2 heard. No murmurs, gallops or rub. ABDOMEN: Soft, nontender. Positive bowel sounds. EXTREMITIES: 2+ peripheral pulses, no lower extremity edema and no calf tenderness. NEUROLOGIC EXAMINATION: Patient is awake, alert and oriented x3. ASSESSMENT 1. Non-STEMI, 2. Hypertension 3. Hyperlipidemia 4. Coronary artery disease status post PCI circumflex 02/20/2021 5. Tobacco abuse PLAN Continue current meds No beta ibrahima due to bradycardia in the 40s overnight Add Norvasc for optimal blood pressure control Patient may be discharged home today Nurse practitioner note has been reviewed by physician. Signing provider agrees with the documented findings, assessment, and plan of care. Objective - Vital Signs Vital signs: Vital Signs Temp 98.0 F 09/10/21 11:31 Pulse 55 L 09/10/21 11:31 Resp 18 09/10/21 11:31 BP 152/80 09/10/21 11:31 Pulse Ox 98 09/10/21 11:31 Intake & Output 09/09/21 09/10/21 09/10/21 18:59 06:59 18:59 Intake Total 1250 540 Output Total 500 Balance 750 540 Weight 97.8 kg Intake: IV 450 Intake, IV Titration 200 300 Amount Sodium Chloride 0.9% 1, 300 000 ml @ 75 mls/hr IV . [id number] KATT Rx#:[id number] Sodium Chloride 0.9% 1, 200 000 ml In Empty Bag 1 bag @ 1 ML/KG/HR 101.3 mls/ hr IV .[id number] KATT Rx#: [id number] Oral 600 240 Output: Urine 500 Other: Voiding Method Toilet Toilet # Voids 3 2 # Bowel Movements 1 - Labs CBC & Chem 7: 09/08/21 08:23 09/10/21 06:08 Labs: Abnormal Lab Results - Last 24 Hours (Table) 09/10/21 Range/Units 06:08 Chloride 108 H (98-107) mmol/L Carbon Dioxide 21 L (22-30) mmol/L BUN 8 L (9-20) mg/dL
--- NOTE | 2021-09-10 15:08 | P.DS ---
Providers Date of admission: 09/07/21 16:55 Expected date of discharge: 09/10/21 Attending physician: Kasia Núñez DO Consults: 09/07/21 18:15 Consult Physician Routine Consulting Provider: Mihir Olmedo Consult Reason/Comments: NSTEMI Do you want consulting provider notified?: Yes 09/09/21 21:09 Consult Physician Routine Consulting Provider: [facility] Consult Reason/Comments: Post Interventional patient Do you want consulting provider notified?: Already Contacted Primary care physician: Ramakrishna Segundo MD Hospital Course: Discharge Diagnosis: [] Hospital Course: Patient is a 51-year-old male with hypertension, dyslipidemia, coronary artery disease status post myocardial infarction 02/21 and ongoing tobacco abuse who presented to the hospital complaints of chest pain. In the ER he underwent extensive evaluation. His vital signs on arrival within normal limits. Initial troponin was mildly elevated. EKG showed marked bradycardia with no significant ST-T wave changes. He was given ASA, Hepain gtt, and metoprolol was held. He was admitted for further monitoring. Caridology was consulted. CXR showed interstitial opacities but COVID testing was negative. He remained bradycardiac and his troponin remined flat. He was seen by cardiology and underwent cath on 09/09 with stent X 3. The following day patient reported that his chest pain had resolved. His blood pressure was elevated so his lisinopril and hydrochlorothiazide were doubled and patient was started on amlodipine. Patient's echocardiogram showed EF of 50- 55%. Patient was counseled extensively on tobacco cessation, however patient states that he is not ready to quit yet because he just quit drinking alcohol. Patient hemoglobin A1c was not checked because his blood glucose was within normal limits on BMPs. Patient cleared by cardiology for discharge. He was counseled on medication compliance especially on taking his dual antiplatelet therapy. Patient currently on aspirin and effient. 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 Patient Condition at Discharge: Good Plan - Discharge Summary Discharge Rx Participant: No New Discharge Prescriptions: No Action Aspirin EC [Ecotrin Low Dose] 81 mg PO DAILY Metoprolol Tartrate [Lopressor] 25 mg PO BID 30 Days #60 tab Lisinopril-Hctz 20-12.5 mg [Zestoretic 20-12.5] 1 tab PO DAILY Atorvastatin [Lipitor] 80 mg PO HS 30 Days #30 tab Prasugrel [Effient] 10 mg PO HS Discharge Medication List Aspirin EC [Ecotrin Low Dose] 81 mg PO DAILY 02/27/21 [History] Atorvastatin [Lipitor] 80 mg PO HS 30 Days #30 tab 03/01/21 [Rx] Metoprolol Tartrate [Lopressor] 25 mg PO BID 30 Days #60 tab 03/01/21 [Rx] Lisinopril-Hctz 20-12.5 mg [Zestoretic 20-12.5] 1 tab PO DAILY 09/07/21 [History] Prasugrel [Effient] 10 mg PO HS 09/07/21 [History] Follow up Appointment(s)/Referral(s): Ramakrishna Segundo MD [Primary Care Provider] - 1-2 days Bib Young DO [STAFF PHYSICIAN] - 1 Week Discharge Disposition: HOME SELF-CARE
[2021-09-10 20:28] LABS: Chol/HDL Ratio 3.29 Ratio; LDL Cholesterol,Calculated 67.7 mg/dL (0.0-131.0)
== END 2021-09-10 12:12 | disposition home or self-care (01) | DRG 247 ==
LOC: EC 14:53 → 3SCARD 16:55
PROVIDERS: ADMIT Internal Medicine; ATTEND Internal Medicine
PROC: B2111ZZ Fluoroscopy of Multiple Coronary Arteries using Low Osmolar Contrast (ICD-10-PCS; 2021-09-09)
PROC: 027036Z Dilation of Coronary Artery, One Artery with Three Drug-eluting Intraluminal Devices, Percutaneous Approach (ICD-10-PCS; principal; 2021-09-09 11:00)
PROC: 4A023N7 Measurement of Cardiac Sampling and Pressure, Left Heart, Percutaneous Approach (ICD-10-PCS; 2021-09-09 11:00)
DX: I21.4 Non-ST elevation (NSTEMI) myocardial infarction (principal); E78.5 Hyperlipidemia, unspecified; R00.1 Bradycardia, unspecified; I25.10 Atherosclerotic heart disease of native coronary artery without angina pectoris; Z20.822 Contact with and (suspected) exposure to COVID-19; F17.210 Nicotine dependence, cigarettes, uncomplicated; I10 Essential (primary) hypertension; I08.3 Combined rheumatic disorders of mitral, aortic and tricuspid valves; I25.2 Old myocardial infarction; Z79.82 Long term (current) use of aspirin; Z79.899 Other long term (current) drug therapy; Z95.5 Presence of coronary angioplasty implant and graft; Z71.6 Tobacco abuse counseling; Z87.19 Personal history of other diseases of the digestive system; Z86.59 Personal history of other mental and behavioral disorders; Z82.49 Family history of ischemic heart disease and other diseases of the circulatory system
CPT/HCPCS: 36415; 71046; 80048; 80053; 80061; 81003; 83735; 84484; 85025; 85610; 85730; 87635; 93005; 93306; 93458; 99285

== ENCOUNTER 2022-01-13 03:46 | Emergency (ER) | payer BC ==
[2022-01-13 03:55] VITALS: RESP 18
--- NOTE | 2022-01-13 04:00 | ED ---
Chest Pain HPI - General Chief Complaint: Chest Pain Stated Complaint: Chest Pain Time Seen by Provider: 01/13/22 03:47 Source: patient, RN notes reviewed, old records reviewed Mode of arrival: ambulatory Limitations: no limitations - History of Present Illness Initial Comments: This is a 52-year-old male DF for evaluation of chest pain. History of [place] or high blood pressure. Patient has had symptoms for about a month now. The family is at home worsening is at work elevated blood pressure and shortness of breath. Persistent chest pain. Again just was at work and been going on for a month. MD Complaint: chest pain -: month(s) Onset: during rest, during exertion Pain Location: substernal, left chest Pain Radiation: none Severity: mild Severity scale (1-10): 3 Quality: tightness, heaviness Consistency: intermittent Improves With: nothing Worsens With: nothing Anginal Symptoms: dyspnea Other Symptoms: palpitations Treatments Prior to Arrival: none - Related Data Home Medications Medication Instructions Recorded Confirmed Aspirin EC [Ecotrin Low Dose] 81 mg PO DAILY 02/27/21 09/07/21 Prasugrel [Effient] 10 mg PO HS 09/07/21 09/07/21 Previous Rx's Medication Instructions Recorded Atorvastatin [Lipitor] 80 mg PO HS 30 Days #30 tab 03/01/21 Lisinopril-Hctz 20-12.5 mg 2 each PO DAILY tab 09/10/21 [Zestoretic 20-12.5] amLODIPine [Norvasc] 5 mg PO DAILY #30 tab 09/10/21 Allergies Allergy/AdvReac Type Severity Reaction Status Date / Time No Known Allergies Allergy Verified 01/13/22 03:54 Review of Systems ROS Statement: Those systems with pertinent positive or pertinent negative responses have been documented in the HPI. ROS Other: All systems not noted in ROS Statement are negative. EKG Findings - EKG Comments: EKG Findings:: EKG is sinus rhythm 89 NH 157 QRS 112 QTC 394 Past Medical History Past Medical History: Hypertension, Myocardial Infarction ([place]) History of Any Multi-Drug Resistant Organisms: None Reported Past Surgical History: Heart Catheterization With Stent, Hernia Repair Past Anesthesia/Blood Transfusion Reactions: No Reported Reaction Past Psychological History: No Psychological Hx Reported Smoking Status: Current every day smoker Past Alcohol Use History: None Reported Past Drug Use History: Marijuana - Past Family History Father Family Medical History: Coronary Artery Disease (CAD) General Exam Limitations: no limitations General appearance: alert, in no apparent distress Head exam: Present: atraumatic, normocephalic, normal inspection Eye exam: Present: normal appearance, PERRL, EOMI. Absent: scleral icterus, conjunctival injection, periorbital swelling ENT exam: Present: normal exam, mucous membranes moist Neck exam: Present: normal inspection. Absent: tenderness, meningismus, lymphadenopathy Respiratory exam: Present: normal lung sounds bilaterally. Absent: respiratory distress, wheezes, rales, rhonchi, stridor Cardiovascular Exam: Present: regular rate, normal rhythm, normal heart sounds. Absent: systolic murmur, diastolic murmur, rubs, gallop, clicks GI/Abdominal exam: Present: soft, normal bowel sounds. Absent: distended, tenderness, guarding, rebound, rigid Extremities exam: Present: normal inspection, full ROM, normal capillary refill. Absent: tenderness, pedal edema, joint swelling, calf tenderness Back exam: Present: normal inspection Neurological exam: Present: alert, oriented X3, CN II-XII intact Psychiatric exam: Present: normal affect, normal mood Skin exam: Present: warm, dry, intact, normal color. Absent: rash Course Vital Signs 01/13/22 01/13/22 03:51 05:46 Temperature 98.5 F 98 F Pulse Rate 98 84 Respiratory 18 18 Rate Blood Pressure 151/97 113/73 O2 Sat by Pulse 95 97 Oximetry - Reevaluation(s) Reevaluation #1: 01/13/22 Medical record is reviewed Patient's blood pressures remained normal patient without chest pain here in the ER Patient prefers discharge Chest Pain MDM - MDM 52 male of atypical chest pain states she does get chest family is at work. Patient Dese for chest pain and elevated blood pressure at work no findings here in the ER. Patient feels well as prefers discharged Disposition Clinical Impression: Chest pain, Atypical chest pain Disposition: HOME SELF-CARE Condition: Good Instructions (If sedation given, give patient instructions): Chest Pain (ED) Is patient prescribed a controlled substance at d/c from ED?: No Referrals: Ramakrishna Segundo MD [Primary Care Provider] - 1-2 days
[2022-01-13 04:38] LABS: Partial Thromboplastin Time 29.2 sec (22.0-30.0); Prothrombin Time 10.8 sec (9.0-12.0)
[2022-01-13 04:39] LABS: ALT 24 U/L (4-49); AST 31 U/L (17-59); African American GFR (CKD) >90 (>60 ml/min/1.73 sqM); Albumin 4.1 g/dL (3.5-5.0); Alkaline Phosphatase 77 U/L (38-126); Anion Gap 9 mmol/L; Blood Urea Nitrogen 17 mg/dL (9-20); Calcium 9.5 mg/dL (8.4-10.2); Carbon Dioxide 21 mmol/L (22-30); Chloride 104 mmol/L (98-107); Glucose 109 mg/dL (74-99); Lipase 181 U/L (23-300); Magnesium 1.9 mg/dL (1.6-2.3); Non-African American GFR(CKD) >90 (>60 ml/min/1.73 sqM); Potassium 4.1 mmol/L (3.5-5.1); Sodium 134 mmol/L (137-145); Total Bilirubin 0.7 mg/dL (0.2-1.3); Total Protein 7.4 g/dL (6.3-8.2)
[2022-01-13 04:44] LABS: Basophils # (A) 0.1 k/uL (0-0.2); Basophils % (A) 1 %; Eosinophils # (A) 0.1 k/uL (0-0.7); Eosinophils % (A) 1 %; HCT 42.3 % (39.0-53.0); HGB 14.5 gm/dL (13.0-17.5); Lymphocytes % (A) 18 %; MCHC 34.3 g/dL (31.0-37.0); MCV 90.2 fL (80.0-100.0); Mean Platelet Volume 7.4; Monocytes # (A) 0.7 k/uL (0-1.0); Monocytes % (A) 6 %; Neutrophils # (A) 7.8 k/uL (1.3-7.7); Neutrophils % (A) 71 %; Platelet Count 296 k/uL (150-450); RBC 4.69 m/uL (4.30-5.90); RDW 13.7 % (11.5-15.5)
[2022-01-13 05:48] VITALS: BP 113/73; PULSE 84; TEMP 98
== END 2022-01-13 05:59 | disposition home or self-care (01) ==
LOC: EC 03:46
DX: I25.2 Old myocardial infarction (principal); F17.200 Nicotine dependence, unspecified, uncomplicated; I10 Essential (primary) hypertension; Z79.82 Long term (current) use of aspirin; Z79.899 Other long term (current) drug therapy
CPT/HCPCS: 36415; 80053; 83690; 83735; 83880; 84484; 85025; 85610; 85730; 93005; 99285

== ENCOUNTER 2022-06-23 22:33 | Emergency (ER) | payer BC ==
[2022-06-23 22:46] VITALS: TEMP 97.8
[2022-06-23] MEDS ORDERED: ASPIRIN 81 MG PO STA (23:17)
[2022-06-23] MEDS ORDERED: SODIUM CHLORIDE 0.9% 1,000 ML IV STA (23:17)
[2022-06-23] MEDS ORDERED: MAG HYDROX/AL HYDROX/SIMETH 30 ML, HYOSCYAMINE ELIXIR 10 ML, LIDOCAINE VISCOUS 2% 10 ML PO STA ×3 (23:18)
[2022-06-23] MEDS ORDERED: FAMOTIDINE 20 MG/2 ML VIAL IV STA (23:18)
[2022-06-23] MEDS ORDERED: KETOROLAC 15 MG/ML 1 ML VIAL IVP STA (23:19)
--- NOTE | 2022-06-23 23:43 | ED ---
General Adult HPI - General Source: patient, RN notes reviewed, old records reviewed Mode of arrival: ambulatory Limitations: no limitations <Latrell Huang - Last Filed: 06/24/22 01:04> <Anup Gilbert - Last Filed: 06/24/22 01:24> - General Chief complaint: Chest Pain Stated complaint: Chest Pain Time Seen by Provider: 06/23/22 23:07 - History of Present Illness Initial comments: Patient is a 52-year-old male with past medical history remarkable for hypertension, MIs with multiple cardiac stents who presents Department complaining of a general feeling of fatigue, body aches, as well as chest pain that has been ongoing since Friday. Endorses mild nonproductive cough. He endorses a mild sore throat. Prescription for chest pain as a burning, uncomfortable sensation located substernally that radiates up towards his throat. Denies nausea. Denies diarrhea. Denies urinary complaints. Denies any headache. Endorses rhinorrhea. Denies any fevers. Patient was not vaccinated for COVID-19. Does not vaccinated for influenza. Presents for further evaluation at this time. States people at his work are sick as well. 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 (Latrell Huang) - Related Data Home Medications Medication Instructions Recorded Confirmed Aspirin EC [Ecotrin Low Dose] 81 mg PO DAILY 02/27/21 09/07/21 Prasugrel [Effient] 10 mg PO HS 09/07/21 09/07/21 Previous Rx's Medication Instructions Recorded Atorvastatin [Lipitor] 80 mg PO HS 30 Days #30 tab 03/01/21 Lisinopril-Hctz 20-12.5 mg 2 each PO DAILY tab 09/10/21 [Zestoretic 20-12.5] amLODIPine [Norvasc] 5 mg PO DAILY #30 tab 09/10/21 Allergies Allergy/AdvReac Type Severity Reaction Status Date / Time No Known Allergies Allergy Verified 06/23/22 22:42 Review of Systems ROS Other: All systems not noted in ROS Statement are negative. <Latrell Huang - Last Filed: 06/24/22 01:04> ROS Other: All systems not noted in ROS Statement are negative. <Anup Gilbert - Last Filed: 06/24/22 01:24> ROS Statement: Those systems with pertinent positive or pertinent negative responses have been documented in the HPI. Review of Systems: CONST: Denies fever EYES: Denies blurry vision ENT: Endorses nasal congestion C/V: Endorses chest pain RESP: Denies shortness of breath GI: Denies abdominal pain : Denies dysuria SKIN: Denies rash. MSK: Denies joint pain. NEURO: Denies headache (Latrell Huang) Past Medical History Past Medical History: Hypertension, Myocardial Infarction ([place]) History of Any Multi-Drug Resistant Organisms: None Reported Past Surgical History: Heart Catheterization With Stent, Hernia Repair Past Anesthesia/Blood Transfusion Reactions: No Reported Reaction Past Psychological History: No Psychological Hx Reported Smoking Status: Current some day smoker Past Alcohol Use History: None Reported Past Drug Use History: Marijuana - Past Family History Father Family Medical History: Coronary Artery Disease (CAD) <aLtrell Huang - Last Filed: 06/24/22 01:04> General Exam Limitations: no limitations <Latrell Huang - Last Filed: 06/24/22 01:04> - General Exam Comments Initial Comments: General: Appears in no acute distress. HEAD: Normal with no signs of head trauma. EYES: PERRLA, EOMI, conjunctiva normal, no discharge. ENT: Hearing grossly intact, normal oropharynx. RESPIRATORY: Clear breath sounds bilaterally. No wheezes, rales, or rhonchi. No increased work of breathing. No hypoxia. C/V: Regular rate and rhythm. S1 and S2 auscultated, no edema, peripheral pulses 2+ and intact throughout ABD: Abd is soft, nontender, nondistended EXT: Normal range of motion, no obvious deformity SKIN: No rashes or lesions observed on exposed skin. NEURO: Alert and oriented 4. (Latrell Huang) Course Vital Signs 06/23/22 22:43 Temperature 97.8 F Pulse Rate 77 Respiratory 18 Rate Blood Pressure 120/78 O2 Sat by Pulse 97 Oximetry Medical Decision Making - Lab Data Result diagrams: 06/23/22 23:45 06/23/22 23:45 - EKG Data -: EKG Interpreted by Me <Latrell Huang - Last Filed: 06/24/22 01:04> - Lab Data Result diagrams: 06/23/22 23:45 08/21/22 23:45 <Anup Gilbert - Last Filed: 06/24/22 01:24> - Medical Decision Making Based on the patient's presentation and physical exam, I cannot rule out acute cardiac etiology for his current symptoms with his history of multiple stents, however does appear that it may be acid reflux type of chest pain in nature. Cannot rule out infectious etiology either. Did discuss he is having somewhat Covid symptoms. Recommended we obtain viral swabs, in addition to cardiac workup and basic labs. He was in agreement this plan. EKG and chest x-ray will be obtained. He'll be symptomatically treated with a GI cocktail, as well as IV fluids, famotidine, ketorolac. Patient will be given an aspirin. Vital signs are within normal limits. He was in agreement this plan. EKG shows no signs of acute ischemia. Chest x-ray shows coarsening lung markings likely secondary to COPD. No obvious infiltrate or infectious process. Laboratory studies are remarkable for a undetectable troponin. Remainder the labs are within normal limits. Viral swabs are still pending at this time. Patient is now asymptomatic. Patient was signed out to Dr. Beck pending results of these swabs. (Latrell Huang) Patient presented to me by previous shift physician, Dr. Huang. Briefly, patient is a 52-year-old male presents to the emergency department for chest pain since Friday. Cardiac workup was unremarkable. Chest x-ray, blood works negative. + From Dr. Huang was to follow up with pending COVID-19 test. COVID-19 test is negative. (Anup Gilbert) - Lab Data Lab Results 06/23/22 06/23/22 06/23/22 Range/Units 23:45 23:45 23:45 WBC 7.5 (3.8-10.6) k/uL RBC 4.69 (4.30-5.90) m/uL Hgb 13.4 (13.0-17.5) gm/dL Hct 42.5 (39.0-53.0) % MCV 90.6 (80.0-100.0) fL MCH 28.6 (25.0-35.0) pg MCHC 31.5 (31.0-37.0) g/dL RDW 14.0 (11.5-15.5) % Plt Count 246 (150-450) k/uL MPV 7.7 Neutrophils % 63 % Lymphocytes % 22 % Monocytes % 9 % Eosinophils % 2 % Basophils % 1 % Neutrophils # 4.8 (1.3-7.7) k/uL Lymphocytes # 1.6 (1.0-4.8) k/uL Monocytes # 0.7 (0-1.0) k/uL Eosinophils # 0.2 (0-0.7) k/uL Basophils # 0.1 (0-0.2) k/uL PT 10.7 (9.0-12.0) sec INR 1.0 (<1.2) APTT 29.0 (22.0-30.0) sec Sodium 136 L (137-145) mmol/L Potassium 3.9 (3.5-5.1) mmol/L Chloride 104 (98-107) mmol/L Carbon Dioxide 21 L (22-30) mmol/L Anion Gap 11 mmol/L BUN 14 (9-20) mg/dL Creatinine 0.72 (0.66-1.25) mg/dL Est GFR (CKD-EPI)AfAm >90 (>60 ml/min/1.73 sqM) Est GFR (CKD-EPI)NonAf >90 (>60 ml/min/1.73 sqM) Glucose 104 H (74-99) mg/dL Calcium 9.0 (8.4-10.2) mg/dL Magnesium 1.9 (1.6-2.3) mg/dL Total Bilirubin 0.2 (0.2-1.3) mg/dL AST 25 (17-59) U/L ALT 19 (4-49) U/L Alkaline Phosphatase 66 (38-126) U/L Troponin I (0.000-0.034) ng/mL Total Protein 6.5 (6.3-8.2) g/dL Albumin 3.6 (3.5-5.0) g/dL Influenza Type A (PCR) (Not Detectd) Influenza Type B (PCR) (Not Detectd) RSV (PCR) (Not Detectd) SARS-CoV-2 (PCR) (Not Detectd) 06/23/22 06/24/22 Range/Units 23:45 00:28 WBC (3.8-10.6) k/uL RBC (4.30-5.90) m/uL Hgb (13.0-17.5) gm/dL Hct (39.0-53.0) % MCV (80.0-100.0) fL MCH (25.0-35.0) pg MCHC (31.0-37.0) g/dL RDW (11.5-15.5) % Plt Count (150-450) k/uL MPV Neutrophils % % Lymphocytes % % Monocytes % % Eosinophils % % Basophils % % Neutrophils # (1.3-7.7) k/uL Lymphocytes # (1.0-4.8) k/uL Monocytes # (0-1.0) k/uL Eosinophils # (0-0.7) k/uL Basophils # (0-0.2) k/uL PT (9.0-12.0) sec INR (<1.2) APTT (22.0-30.0) sec Sodium (137-145) mmol/L Potassium (3.5-5.1) mmol/L Chloride (98-107) mmol/L Carbon Dioxide (22-30) mmol/L Anion Gap mmol/L BUN (9-20) mg/dL Creatinine (0.66-1.25) mg/dL Est GFR (CKD-EPI)AfAm (>60 ml/min/1.73 sqM) Est GFR (CKD-EPI)NonAf (>60 ml/min/1.73 sqM) Glucose (74-99) mg/dL Calcium (8.4-10.2) mg/dL Magnesium (1.6-2.3) mg/dL Total Bilirubin (0.2-1.3) mg/dL AST (17-59) U/L ALT (4-49) U/L Alkaline Phosphatase (38-126) U/L Troponin I <0.012 (0.000-0.034) ng/mL Total Protein (6.3-8.2) g/dL Albumin (3.5-5.0) g/dL Influenza Type A (PCR) Not Detected (Not Detectd) Influenza Type B (PCR) Not Detected (Not Detectd) RSV (PCR) Not Detected (Not Detectd) SARS-CoV-2 (PCR) Not Detected (Not Detectd) - EKG Data EKG Comments: 12-lead Electrocardiogram Interpretation Note EKG was reviewed and interpreted by myself. 12-lead ECG performed at 2247 is interpreted by me as revealing sinus bradycardia at a rate of 56 beats per minute. [place] is normal. OK interval is 184 ms, QRS duration is 118 ms, QTc is 396 ms.. There were no ST or T wave abnormalities to suggest myocardial ischemia or injury. R wave progression across the precordium was satisfactory. By my interpretation this EKG is non-diagnostic for acute ischemia. (Latrell Huang) Disposition <Latrell Huagn - Last Filed: 06/24/22 01:04> Is patient prescribed a controlled substance at d/c from ED?: No Time of Disposition: 01:24 <Anup Gilbert - Last Filed: 06/24/22 01:24> Clinical Impression: Chest pain Disposition: HOME SELF-CARE Condition: Good Instructions (If sedation given, give patient instructions): Chest Pain (ED) Referrals: Ramakrishna Segundo MD [Primary Care Provider] - 1-2 days
[2022-06-24 00:24] LABS: Basophils # (A) 0.1 k/uL (0-0.2); Basophils % (A) 1 %; Eosinophils # (A) 0.2 k/uL (0-0.7); Eosinophils % (A) 2 %; HCT 42.5 % (39.0-53.0); HGB 13.4 gm/dL (13.0-17.5); Lymphocytes # (A) 1.6 k/uL (1.0-4.8); Lymphocytes % (A) 22 %; MCH 28.6 pg (25.0-35.0); MCHC 31.5 g/dL (31.0-37.0); MCV 90.6 fL (80.0-100.0); Mean Platelet Volume 7.7; Monocytes # (A) 0.7 k/uL (0-1.0); Monocytes % (A) 9 %; Neutrophils # (A) 4.8 k/uL (1.3-7.7); Neutrophils % (A) 63 %; Platelet Count 246 k/uL (150-450); Prothrombin Time 10.7 sec (9.0-12.0); RBC 4.69 m/uL (4.30-5.90); WBC 7.5 k/uL (3.8-10.6)
--- NOTE | 2022-06-24 00:26 | XR ---
EXAMINATION TYPE: XR chest 2V DATE OF EXAM: 06/24/2022 COMPARISON: 09/07/2021 HISTORY: Chest pain TECHNIQUE: FINDINGS: Heart is normal. Lungs are clear of consolidation. There is some coarsening of the intersti tial markings. There are chest leads. Bony thorax is intact. No pleural effusion. IMPRESSION: There is coarsening of the lung markings that could relate to mild pulmonary fibrosis and not changed compared to old exam. Normal heart.
[2022-06-24 00:33] LABS: ALT 19 U/L (4-49); AST 25 U/L (17-59); African American GFR (CKD) >90 (>60 ml/min/1.73 sqM); Albumin 3.6 g/dL (3.5-5.0); Alkaline Phosphatase 66 U/L (38-126); Anion Gap 11 mmol/L; Blood Urea Nitrogen 14 mg/dL (9-20); Carbon Dioxide 21 mmol/L (22-30); Chloride 104 mmol/L (98-107); Glucose 104 mg/dL (74-99); Magnesium 1.9 mg/dL (1.6-2.3); Non-African American GFR(CKD) >90 (>60 ml/min/1.73 sqM); Potassium 3.9 mmol/L (3.5-5.1); Sodium 136 mmol/L (137-145); Total Bilirubin 0.2 mg/dL (0.2-1.3); Total Protein 6.5 g/dL (6.3-8.2)
[2022-06-24 01:47] VITALS: BP 116/82; PULSE 45; RESP 16
== END 2022-06-24 01:47 | disposition home or self-care (01) ==
LOC: EC 22:33
DX: R07.9 Chest pain, unspecified (principal); R09.1 Pleurisy; R05.8 Other specified cough; F17.200 Nicotine dependence, unspecified, uncomplicated; I10 Essential (primary) hypertension; I25.2 Old myocardial infarction; Z79.82 Long term (current) use of aspirin; Z20.822 Contact with and (suspected) exposure to COVID-19
CPT/HCPCS: 36415; 93005; 80053; 83735; 84484; 85025; 85610; 85730; 87636; 71046; 99285; J1885

== ENCOUNTER → 2023-06-09 | Outpatient (CLI) | payer BC ==
--- NOTE | 2023-06-09 22:50 | CTL ---
EXAMINATION TYPE: CT Low Dose Lung DATE OF EXAM ORDERED: 06/09/2023 HISTORY: . Lung cancer screening CT DLP: mGycm CT CTDI: mGy Automated exposure control for dose reduction was used. SCREENING VISIT: Initial COMPARISON: None TECHNIQUE: Low dose computed tomography scan was performed through the chest at 1 mm thick sections a nd reconstructed images in the coronal plane at [address] DIAGNOSTIC QUALITY: Satisfactory FINDINGS: LUNG NODULES: None. Diffuse groundglass opacity is present throughout the bilateral lung mckeon 1. There is a pleural base density within the anterolateral right upper lung field measuring 1.1 cm. Series 4 image 93. 2. There is a 0.6 x 1.2 cm density in the right upper lung field rate series 4 image 101. 3. There is a 0.7 cm nodular density in the periphery of the right mid lung. Series 4 image 144. 4. Nodule is in the periphery of the lateral right lung measuring 0.4 cm, this series 4 image 145. 5. There is a 0.7 cm nodule peripheral right lung. Series 4 image 176. LUNGS: COPD: Severity: Moderate Fibrosis: Severity: Mild Lymph nodes: Scattered mediastinal lymph nodes some of which measure greater than 1 cm. Additional wo rkup with PET CT is recommended. Other findings: None RIGHT PLEURAL SPACE: Effusion: None Calcification: None Thickening: None Pneumothorax: None LEFT PLEURAL SPACE: Effusion: None Calcification: None Thickening: None Pneumothorax: None HEART: Heart Size: Normal Coronary calcification: Moderate Pericardial effusion: None OTHER FINDINGS: Upper abdomen: Normal Bony thorax: Normal Supraclavicular region: Normal Other: Ascending thoracic aorta at the level the main pulmonary artery measures 3.9 cm. The main pul monary artery at the bifurcation measures 2.9 cm. IMPRESSION: Groundglass opacities of bilateral infiltrates. Correlate for pulmonary edema. 2. Multiple scattered nodules. Additional workup with PET CT is recommended. Neoplasm is not excluded . 3. Enlarged mediastinal lymphadenopathy. Metastatic disease should be considered. FOLLOW UP CT CHEST RECOMMENDATION: PET/CT CT LUNG RAD: Lung-Rad 4B Suspicious
== END | disposition home or self-care (01) ==
LOC: RADCTMAIN 09:49
PROVIDERS: ATTEND Family Medicine
DX: Z12.2 Encounter for screening for malignant neoplasm of respiratory organs (principal); R91.8 Other nonspecific abnormal finding of lung field; R59.0 Localized enlarged lymph nodes; Z87.891 Personal history of nicotine dependence
CPT/HCPCS: 71271

== ENCOUNTER → 2024-05-12 | Outpatient (CLI) | payer BC ==
--- NOTE | 2024-05-12 09:02 | US ---
EXAMINATION TYPE: US duplex aorta DATE OF EXAM: 05/12/2024 COMPARISON: NONE CLINICAL INDICATION: Male, 54 years old with history of I70.0 ATHEROSCLEROSIS OF AORTA; plaque seen o n recent xray, grandmother had AAA, smoker TECHNIQUE: Multiple sonographic images of the abdominal aorta are obtained. FINDINGS: EXAM MEASUREMENTS: Abdominal Aorta: Proximal: 2.7 x 2.8cm Mid: 2.1 x 2.2cm Distal: 1.7 x 1.7cm Bifurcation: Right Iliac: gassed out Left Iliac: gassed out LINE LOCATOR NOTES: Normal caliber aorta IMPRESSION: No aneurysmal dilatation abdominal aorta using ultrasound.
== END | disposition home or self-care (01) ==
LOC: RADUSWWP 07:42
PROVIDERS: ATTEND Family Medicine
DX: I70.0 Atherosclerosis of aorta (principal)
CPT/HCPCS: 93979